=== PATIENT | male | born 1965 | race Caucasian/White ===

== ENCOUNTER 2024-03-22 02:47 | Emergency (ER) | payer SELFPAY ==
[2024-03-22] VITALS (11 sets, daily range): BP systolic 131–177; BP diastolic 77–113; PULSE 78–88; RESP 16–19; TEMP 36.1–37; O2SAT 86–100; BMI 25.1
--- NOTE | 2024-03-22 02:49 | RAD_ITS ---
INDICATION: trauma EXAMINATION/TECHNIQUE: X-RAY - LEFT XR Ankle Min 3 Views COMPARISON: None. FINDINGS: SOFT TISSUES: Moderate soft tissue swelling. BONES/JOINTS: Displaced fracture of the medial malleolus. Displaced fracture of the distal fibula at and proximal to the ankle mortise. Displaced posterior malleolar fracture. Disruption of the ankle mortise. No erosive changes. RAD/Ankle min 3 Views IMPRESSION: Displaced trimalleolar fractures with disruption of the ankle mortise. Electronically Signed: Brandon Guthrie DO at 4:53 EDT ,
--- NOTE | 2024-03-22 03:18 | EDS_ITS ---
HPI History of Present Illness Chief Complaint: Lower Extremity Injury Informant: patient and EMS Narrative Narrative: 59-year-old male presenting to the emergency room with left ankle injury. Patient states that he has been drinking most of the day and about an hour prior to arrival fell in a motel parking lot. States he was unable to get up and injured his left ankle. EMS notes an obvious deformity to the ankle. He notes abrasions to the left knee and right hand. 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 He states he drinks most days. Nursing notes he was incontinent of stool and bladder. He denies any head neck or back injury. He notes the pain to be a 1 out of 10 when EMS is speaking with him. [facility] Medical History Left otitis media Hypertension, uncontrolled Encounter for screening for COVID-19 Home Medications ?Medication ?Instructions ?Recorded ?Last Taken ?Type loratadine 10 mg tablet (Claritin) 10 mg PO DAILY 03/22/24 Unknown History oxycodone-acetaminophen 5 mg-325 1 tab PO Q6H PRN pain 3 days #12 03/22/24 Unknown Rx mg tablet (Percocet) tabs Allergy/AdvReac Type Severity Reaction Status Date / Time No Known Allergies Allergy Verified 03/22/24 03:02 Social History Smoking Status: Current every day smoker tobacco type: smokeless tobacco ROS ROS ED Constitutional Constitutional ED: Denies chills, fever(s) or weight loss Eyes Eyes: Denies change in vision or diplopia ENT ENT ED: Denies ear pain, rhinorrhea or sore throat Cardiovascular Cardiovascular: Denies chest pain, orthopnea, palpitations or racing heartbeat Respiratory/Chest Respiratory/Chest: Denies cough, dyspnea or orthopnea Gastrointestinal Gastrointestinal: Denies abdominal pain, diarrhea, nausea or vomiting Genitourinary Genitourinary ED: Denies dysuria, hematuria or urinary frequency Musculoskeletal Musculoskeletal: Reports other Details: Left ankle injury ; Denies arthralgias, back pain, myalgias or neck pain Integumentary Reports Abrasions; Denies abscess or rash Neurologic Neurologic: Denies headache(s) or weakness Psychiatric Psychiatric: Denies anxiety, depression, suicidal ideation or suicidal thoughts Endocrine Endocrinology: Denies polydipsia, polyphagia or polyuria Allergic/Immunologic Allergic/Immunologic ED: Denies mouth swelling, tongue swelling or urticaria EXAM Physical Exam Const Vital Signs: 03/22/24 02:50 03/22/24 03:49 03/22/24 04:00 Temperature 96.9 F L Temperature Source Temporal Pulse Rate 86 88 83 Pulse Rate [1 (Initial Baseline)] Pulse Rate [3] Respiratory Rate 18 16 Respiratory Rate [1 (Initial Baseline)] Respiratory Rate [3] Blood Pressure 152/96 H 139/92 H Blood Pressure [1 (Initial Baseline)] Blood Pressure [3] Blood Pressure Mean 114 107 Pulse Ox 98 96 Oxygen Delivery Method Room Air Room Air Oxygen Delivery Method [1 (Initial Baseline)] Oxygen Delivery Method [2] Oxygen Delivery Method [3] Oxygen Flow Rate (L/min) Oxygen Flow Rate (L/min) [3] 03/22/24 04:08 03/22/24 04:18 03/22/24 04:23 Temperature Temperature Source Pulse Rate 83 Pulse Rate [1 (Initial Baseline)] 87 Pulse Rate [3] 87 Respiratory Rate 16 Respiratory Rate [1 (Initial Baseline)] 18 Respiratory Rate [3] 19 H Blood Pressure 139/92 H Blood Pressure [1 (Initial Baseline)] 151/94 H Blood Pressure [3] 160/104 H Blood Pressure Mean Pulse Ox 95 Oxygen Delivery Method Room Air Nasal Cannula Oxygen Delivery Method [1 (Initial Baseline)] Room Air Oxygen Delivery Method [2] Room Air Oxygen Delivery Method [3] Nasal Cannula Oxygen Flow Rate (L/min) 2 Oxygen Flow Rate (L/min) [3] 4 03/22/24 04:28 03/22/24 04:33 03/22/24 05:00 Temperature Temperature Source Pulse Rate 80 Pulse Rate [1 (Initial Baseline)] Pulse Rate [3] Respiratory Rate 18 Respiratory Rate [1 (Initial Baseline)] Respiratory Rate [3] Blood Pressure 131/77 H Blood Pressure [1 (Initial Baseline)] Blood Pressure [3] Blood Pressure Mean 95 Pulse Ox 95 Oxygen Delivery Method Room Air Room Air Room Air Oxygen Delivery Method [1 (Initial Baseline)] Oxygen Delivery Method [2] Oxygen Delivery Method [3] Oxygen Flow Rate (L/min) Oxygen Flow Rate (L/min) [3] 03/22/24 06:00 Temperature Temperature Source Pulse Rate 78 Pulse Rate [1 (Initial Baseline)] Pulse Rate [3] Respiratory Rate 18 Respiratory Rate [1 (Initial Baseline)] Respiratory Rate [3] Blood Pressure 143/86 H Blood Pressure [1 (Initial Baseline)] Blood Pressure [3] Blood Pressure Mean 105 Pulse Ox 97 Oxygen Delivery Method Room Air Oxygen Delivery Method [1 (Initial Baseline)] Oxygen Delivery Method [2] Oxygen Delivery Method [3] Oxygen Flow Rate (L/min) Oxygen Flow Rate (L/min) [3] Positive well nourished and well developed General Appearance ED: well developed and NAD HEENT Reports normocephalic, head/scalp atraumatic and moist mucous membranes Eyes PERRL and EOMs intact bilaterally Neck full ROM, no lymphadenopathy, supple and no JVD Neck Narrative: No neck tenderness on palpation Resp normal respiratory effort and clear to auscultation bilaterally Cardio regular rate, regular rhythm and no murmurs GI normal to inspection, nondistended, normoactive bowel sounds and non-tender Palpation: soft Back/Spine no CVA tenderness and normal ROM Cervical Spine: Negative for cervical spine tenderness Thoracic Spine / Upper Back: Negative for thoracic spinal tenderness Lumbar Spine / Lower Back: Negative for lumbar spinal tenderness Extremity Extremity Narrative: There is significant swelling deformity to the left ankle. The foot has a palpable dorsalis pedis pulse. Good capillary refill. He is able to move the toes. There is superficial abrasion to the anterior left knee and the right medial dorsal hand General Extremety ED: Negative for edema General Extremity: Negative for edema Neuro oriented x3 and CN's II-XII intact bilaterally Sensorium / Orientation: alert Motor Exam: strength 5/5 throughout Psych mental status grossly normal Mood & Affect: Negative for depressed or tearful Skin no rashes or lesions noted and no wounds MDM MDM MDM Narrative Medical decision making narrative: Differential diagnosis includes fracture dislocation arterial and venous compromise nerve damage alcohol intoxication My independent interpretation of the plain films of the left ankle is a Tri mall fracture dislocation. There is mortise disruption. I explained to the patient the need to reduce the ankle and splinted it and that it would be significantly painful. He declined pain medication but is willing to have etomidate used for procedural sedation. Patient received 0.15 mg/kg bolus of etomidate. Once adequate sedation was achieved the fracture dislocation was reduced and placed in a posterior and stirrup well-padded Ortho- Glass splint. My independent interpretation of the postreduction films is adequate reduction of the fracture and dislocation. Patient recovered without incident. I spoke with Dr. Shah from foot and ankle. Patient will be given crutches made nonweightbearing given pain medication. A CT scan was obtained for preoperative planning. Patient understands the need to follow-up. I also advised him that he needs help with his alcohol he should get that and I referred him to 180. History & Record Review Discussion w/independent historian: EMS personnel and Patient Radiography Diagnostic Testing: Clinical Impression(s) from Imaging Studies Ankle X-Ray 03/22/24 02:49 IMPRESSION: Displaced trimalleolar fractures with disruption of the ankle mortise. Electronically Signed: Brandon Guthrie DO at 4:53 EDT , Ankle X-Ray 03/22/24 03:46 IMPRESSION: In plaster views of the left ankle demonstrate the previously described medial malleolar and distal fibular fractures with improved alignment of fracture fragments. Unsure whether there is a posterior malleolus fracture. Electronically Signed: Brandon Guthrie DO at 5:20 EDT , Management Discussion w/another healthcare provider: Talent Recruiter (Dr. Shah) Procedures Procedural Sedation 1 (Initial Baseline): Consent Signed: Yes Any Problems With Anesthesia: No You/Your family experience fever (hyperthermia) w/anesthesia: No Sedation medication: Etomidate Dose: 11.2 Route: IV Total Moderate Sedation Units: 5 Maliampati Score: Class II ASA Classification: II Discharge Plan Triage Chief Complaint: Lower Extremity Injury ED Provider: Shubham Weaver Dx/Rx/DC Orders Clinical Impression: Trimalleolar fracture of ankle, closed, Alcohol abuse, Multiple abrasions, Fall Instructions: ED Ankle Fracture, ED Alcohol Abuse Prescriptions: New oxycodone-acetaminophen [Percocet] 5-325 mg tablet 1 tab PO Q6H PRN (Reason: pain) 3 Days Qty: 12 0RF No Action loratadine [Claritin] 10 mg tablet 10 mg PO DAILY Primary Care Provider: Care Physician,No Primary Referrals: Gavin Shah DPM [Med Staff - Active Staff] - As soon as possible Care Physician,No Primary [Primary Care Provider] - [facility] [Non-Staff] - As soon as possible (for alcohol treatment help) Activity Restrictions/Additional Instructions: Do not bear any weight on this ankle. Use crutches. I strongly recommend that you refrain from drinking alcohol. If you need help with drinking please see t he resource given. Print Language: Greek Disposition Disposition: Home, Self Care
--- NOTE | 2024-03-22 03:46 | RAD_ITS ---
INDICATION: post reduction EXAMINATION/TECHNIQUE: X-RAY - LEFT XR Ankle Min 3 Views COMPARISON: X-rays from earlier same day. FINDINGS/ RAD/Ankle min 3 Views IMPRESSION: In plaster views of the left ankle demonstrate the previously described medial malleolar and distal fibular fractures with improved alignment of fracture fragments. Unsure whether there is a posterior malleolus fracture. Electronically Signed: Brandon Guthrie DO at 5:20 EDT ,
[2024-03-22] MEDS: Etomidate 20 MG/10 ML Vial 11.5 MG IV (04:36)
--- NOTE | 2024-03-22 06:10 | CT_ITS ---
INDICATION: Trimalleolar fracture EXAMINATION: CT BONE - CT Ankle W/O Contrast Injection TECHNIQUE: Helically acquired images were obtained of the left ankle with sagittal and coronal reconstructed images. Individualized dose optimization techniques were used for this CT. IV contrast dosage and agent: None. COMPARISON: X-rays from earlier same day. FINDINGS: Diffuse soft tissue swelling and stranding of the ankle, worse laterally. Mildly displaced fractures of the medial malleolus, distal fibula at and proximal to the ankle mortise and the posterior malleolus. The talus is intact. No fracture or dislocation of the partially visualized foot. The tarsal bones are intact. CT/Extremity Lower without Contra IMPRESSION: Trimalleolar fracture. Electronically Signed: Brandon Guthrie DO at 7:08 EDT ,
== END 2024-03-22 06:58 | disposition home or self-care (01) ==
PROVIDERS: Emergency Provider Emergency Medicine; Visit Provider Emergency Medicine
DX: S82.853A Displaced trimalleolar fracture of unspecified lower leg, initial encounter for closed fracture (principal); S90.519A Abrasion, unspecified ankle, initial encounter; Y92.481 Parking lot as the place of occurrence of the external cause; R15.9 Full incontinence of feces; I10 Essential (primary) hypertension; S80.212A Abrasion, left knee, initial encounter; S60.511A Abrasion of right hand, initial encounter; F10.10 Alcohol abuse, uncomplicated; F17.220 Nicotine dependence, chewing tobacco, uncomplicated; W19.XXXA Unspecified fall, initial encounter; Y90.9 Presence of alcohol in blood, level not specified
CPT/HCPCS: 27818; 29515; 73610; 73700; 99285; J7040; A4216

== ENCOUNTER 2024-04-15 10:37 | Observation (INO) | payer MEDICAID, SELFPAY ==
[2024-04-15] VITALS (9 sets, daily range): BP systolic 128–180; BP diastolic 79–104; PULSE 61–106; RESP 15–22; TEMP 36.4–37; O2SAT 98–100; BMI 24.3; BMI 23.1
--- NOTE | 2024-04-15 10:54 | EKG12_ITS ---
Test Reason : PRE OP Blood Pressure : / mmHG Vent. Rate : 088 BPM Atrial Rate : 088 BPM P-R Int : 156 ms QRS Dur : 076 ms QT Int : 350 ms P-R-T Axes : 032 016 041 degrees QTc Int : 423 ms Normal sinus rhythm Normal ECG Confirmed by SEBASTIÁN LANDAVERDE, MORALES ([id number]), social media editor KYRA OLIVEIRA ([id number]) on 04/20/2024 8:39:24 AM Referred By: Confirmed By:JERE LOWERY MD
--- NOTE | 2024-04-15 10:55 | ED.VIS.LOWEX ---
HPI History of Present Illness Chief Complaint: Lower Extremity Injury Narrative Narrative: 59-year-old male past medical history of left ankle fracture, currently being followed as an outpatient by Dr. Shah presents because he is post to have surgery on Saturday. He relays a history that almost a month ago he tripped over a parking curb, and sustained a fracture to his left ankle. He was sent in for medical clearance by the hospitalists for surgery by podiatry. He denies any symptoms except for his splint/cast itching. No fevers or chills, no chest pain or shortness of breath. [facility] Medical History Left otitis media Hypertension, uncontrolled Encounter for screening for COVID-19 Home Medications ?Medication ?Instructions ?Recorded ?Last Taken ?Type loratadine 10 mg tablet (Claritin) 10 mg PO DAILY 03/22/24 Unknown History oxycodone-acetaminophen 5 mg-325 1 tab PO Q6H PRN pain 3 days #12 03/22/24 Unknown Rx mg tablet (Percocet) tabs oxycodone-acetaminophen 5 mg-325 1 tab PO Q6H PRN pain 7 days #28 03/30/24 Unknown Rx mg tablet (Percocet) tabs Allergy/AdvReac Type Severity Reaction Status Date / Time No Known Allergies Allergy Verified 03/22/24 03:02 Social History Smoking Status: Current every day smoker tobacco type: smokeless tobacco ROS ROS ED ROS Narrative Constitutional: No fever, no chills. HEENT: No sore throat. No neck pain. No loss of vision. No rhinorrhea. Cardiovascular: No chest pain. No palpitations. No pedal edema. Respiratory: No cough, no shortness of breath. Abdominal: No abdominal pain. No nausea. No vomiting. Genitourinary: No dysuria. No hematuria. Musculoskeletal: No myalgias. Positive left ankle pain from fracture. Neurologic: No headaches. No dizziness. No lightheadedness. Skin: No rash. No change in color. Psychiatric: No depression. No anxiety. EXAM Physical Exam Narrative Exam Narrative: Afebrile. Vital signs noted. HEENT: Normocephalic. Atraumatic. PERRL, EOMI. Neck soft and supple. No point tenderness or step off. Cardiovascular: Regular rate and rhythm with intermittent tachycardia. No murmurs, rubs, or gallops appreciated. Respiratory: No tachypnea. Lungs clear to auscultation bilaterally. Gastrointestinal: Abdomen soft, nontender, with normoactive bowel sounds. No rebound or guarding. Neurological: Awake. Alert. Nonfocal, nonlateralizing. Skin: No rash. Normal color. No pallor. Musculoskeletal: No pedal edema. Left lower extremity in splint/cast wrapped with Inocente wrap. Const Vital Signs: 04/15/24 10:37 Temperature 97.6 F L Temperature Source Temporal Pulse Rate 106 H Respiratory Rate 22 H Blood Pressure 163/93 H Blood Pressure Mean 116 Pulse Ox 99 Oxygen Delivery Method Room Air MDM MDM MDM Narrative Medical decision making narrative: Reviewed the patient's prior record. Additionally, his independent sales representative Dr. Sahh has called in and would like him admitted to the hospitalist. I will obtain CBC and CMP as well as EKG and chest x-ray for initial medical clearance. EKG was obtained and interpreted by myself independently as normal sinus rhythm at 88 bpm without ectopy or acute ST changes. No STEMI. I reviewed his laboratory work and he has normal white count of 7.3, hemoglobin 12.7 with platelet count normal at 384. CMP is grossly unremarkable with normal LFTs, normal sodium and normal potassium. Creatinine normal at 0.81, no evidence of renal failure. Chest x-ray 1 view interpreted by myself independently shows no evidence of a pneumothorax or pneumonia. At this point in time, I will discuss patient with the hospitalist for admission. They can do other medical clearance laboratories and/or imaging as needed. Disposition is admit in stable condition. History & Record Review Discussion w/independent historian: Patient Additional record(s) reviewed:: Prior ED visit Lab Data Attestation: I reviewed the patient's lab results. Labs: Laboratory Results - last 24 hr 04/15/24 11:00 WBC 7.3 RBC 3.82 L Hgb 12.7 L Hct 39.5 L MCV 103.4 H MCH 33.2 H MCHC 32.2 RDW Std Deviation 47.0 H RDW Coeff of Mikey 12.3 Plt Count 384 MPV 8.2 Immature Gran % (Auto) 0.300 Neut % (Auto) 74.6 H Lymph % (Auto) 15.0 L [place] % (Auto) 7.1 Eos % (Auto) 2.5 Baso % (Auto) 0.5 Absolute Neuts (auto) 5.5 Absolute Lymphs (auto) 1.10 Nucleated RBC % 0 Sodium 136 Potassium 4.3 Chloride 104 Carbon Dioxide 28.0 Anion Gap 4 L BUN 17 Creatinine 0.81 Estim Creat Clear Calc 99.41 Est GFR (MDRD) Af Amer 126 Est GFR (MDRD) Non-Af 104 BUN/Creatinine Ratio 21.0 H Glucose 96 Calcium 9.3 Total Bilirubin 0.50 AST 25 ALT 29 Alkaline Phosphatase 101 Troponin I High Sens 5 Total Protein 7.4 Albumin 3.4 Globulin 4.0 Albumin/Globulin Ratio 0.8 L Radiography Diagnostic Testing: Clinical Impression(s) from Imaging Studies Chest X-Ray 04/15/24 11:11 IMPRESSION: Normal x-ray examination of the chest. Electronically Signed: Blas Mauricio MD at 11:57 EDT , Management Discussion w/another healthcare provider: Hospitalist (Dr. Del Toro) Discharge Plan Dx/Rx/DC Orders Clinical Impression: Closed trimalleolar fracture of ankle Disposition Disposition: Acute Care Hospital [facility]
--- NOTE | 2024-04-15 11:11 | RAD_ITS ---
STUDY: X-RAY CHEST REASON FOR EXAM: Male, 59 years old. Tachycardia TECHNIQUE: Single AP portable view of the chest. COMPARISON: None. FINDINGS: The lungs are clear and expanded. There is no demonstrated pleural abnormality. Normal size heart. Normal mediastinum and lisa. Normal visualized pulmonary arteries. Normal visualized aortic arch and descending thoracic aorta. Normal visualized thoracic spine. Normal visualized ribs, clavicles, and shoulders. There is no demonstrated abnormality of the visualized soft tissue structures of the upper abdomen. RAD/Chest 1 View (Portable) IMPRESSION: Normal x-ray examination of the chest. Electronically Signed: Blas Mauricio MD at 11:57 EDT ,
[2024-04-15 11:12] LABS: Absolute Neutrophil Count 5.5 X10^3/uL (2.0-7.7); Basophil# 0.04 X10^3/uL; Basophil% 0.5 % (0-1); Eosinophil# 0.18 X10^3/uL; Eosinophils% 2.5 % (0-5); Hematocrit 39.5 % (40-54); Hemoglobin 12.7 g/dL (13.0-16.5); Mean Corp Hgb Conc 32.2 g/dL (32-36); Mean Corpuscular Hgb 33.2 pg (27.0-32.0); Mean Corpuscular Volume 103.4 fL (80-94); Mean Platelet Vol. 8.2 fl (6.2-12.0); Monocyte# 0.52 X10^3/uL; Monocyte% 7.1 % (0-10); NRBC Flagged by Analyzer 0 % (0-5); Neutrophil # 5.45 X10^3/uL (2.7-7.7); Neutrophil % 74.6 % (47-70); Platelet Count 384 K/mm3 (150-450); RBC Distribution Width CV 12.3 % (11.6-14.6); Red Blood Count 3.82 M/mm3 (4.6-6.2); White Blood Count 7.3 K/mm3 (4.4-11.0)
[2024-04-15 11:30] LABS: ALB/GLOB Ratio 0.8 RATIO (0.9-2.4); AST(SGOT) 25 U/L (15-37); Alanine Aminotransfer ALT/SGPT 29 U/L (16-61); Albumin, Serum 3.4 g/dL (3.2-5.0); Alkaline Phosphatase 101 U/L (45-117); Anion Gap 4 (5-15); BUN 17 mg/dL (7-18); Calcium,Total 9.3 mg/dL (8.5-10.1); Chloride 104 mmol/L (98-107); Creatinine, Serum 0.81 mg/dL (0.70-1.30); EST Glomerular Filtration Rate 104 mL/min (>60); Est Glom Filt Rate - Afr Amer 126 mL/min (>60); Estimated Creatinine Clearance 99.41 ml/min; Glucose 96 mg/dL (74-106); Potassium 4.3 mmol/L (3.5-5.1); Protein, Total 7.4 g/dL (6.4-8.2); Sodium Level 136 mmol/L (136-145); Troponin-I HS 5 pg/mL (3.0-78.0)
--- NOTE | 2024-04-15 11:58 | NURSING ---
DR BAILEY FOR DR THORNE
--- NOTE | 2024-04-15 11:59 | HP.PCM.HOS_ITS ---
HPI - General General Date of Admission: 04/15/24 Date of Service: 04/15/24 Chief Complaint: Recent left ankle fracture, preoperative evaluation HPI Narrative CHERRIE BURNS, is a 59 M who presented to [facility] ED on 04/15/2024 for preoperative evaluation prior to planned surgery on Saturday with podiatry for recent left ankle fracture. Patient suffered ankle fracture on 03/22, was seen in our ED for this. Per that ED note, patient apparently was out drinking that day and had a fall off of the curb in a motel parking lot with subsequent left ankle pain. EMS was called and noted an obvious ankle deformity and brought him to the ED. 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 At that time, ED noted that he apparently said he was drinking most days. In the ED, was found to have a closed trimalleolar left ankle fracture as well as other small abrasions throughout the body. He was discharged from the ED and followed up with podiatry in the office. He came to the ED today at the request of Dr. Shah for preoperative evaluation. He apparently has some insurance issues and it was challenging to get preoperative clearance done in the office. I saw patient at bedside in the ED. He was mildly anxious appearing but otherwise sitting up comfortably in bed, in no acute distress. Stated to me today that he only drinks about once per week and drinks only beer. Denies any hard liquor use. Denies any history of alcohol withdrawal. He also uses chewing tobacco on a regular basis. Denies any other drug use. Takes no regular medications at home. Vitals in the ED were notable for hypertension to the 170s over 90s. Patient denies history of hypertension. He was initially prescribed a short course of Percocet on discharge from the ED on 03/22 but after 5 to 7 days of that he had good improvement in pain and has only been taking ibuprofen as needed for pain since then. He otherwise denies any concerns at this time. [facility] Medical History Left otitis media Hypertension, uncontrolled Encounter for screening for COVID-19 Home Medications ?Medication ?Instructions ?Recorded ?Last Taken ?Type oxycodone-acetaminophen 5 mg-325 1 tab PO Q6H PRN pain 7 days #28 03/30/24 Unknown Rx mg tablet (Percocet) tabs acetaminophen 500 mg tablet 1,000 mg PO Q6H PRN pain 04/15/24 04/15/24 History ibuprofen 800 mg tablet 800 mg PO TID 04/15/24 04/15/24 History multivitamin (Daily Multi-Vitamin 0.5 tab PO DAILY 04/15/24 04/15/24 History tablet) Allergy/AdvReac Type Severity Reaction Status Date / Time No Known Allergies Allergy Verified 03/22/24 03:02 Social History Smoking Status: Current every day smoker tobacco type: smokeless tobacco ROS Constitutional Constitutional: Denies chills, fatigue, fever(s) or weakness Eyes Eyes: Denies change in vision Cardiovascular Cardiovascular: Denies chest pain Respiratory/Chest Respiratory/Chest: Denies shortness of breath at rest or shortness of breath with exertion Gastrointestinal Gastrointestinal: Denies abdominal pain Musculoskeletal Musculoskeletal: Reports joint pain; Denies arthralgias or myalgias Neurologic Neurologic: Denies dizziness, focal weakness or headache(s) Vital Signs Vital Signs Vital Signs: 04/15/24 10:37 Temperature 97.6 F L Temperature Source Temporal Pulse Rate 106 H Respiratory Rate 22 H Blood Pressure 163/93 H Blood Pressure Mean 116 Pulse Ox 99 Oxygen Delivery Method Room Air Weight Weight: 74.843 kg Body Mass Index (BMI) 24.3 Physical Exam Const alert, oriented x3, no apparent distress and average body habitus Constitutional Narrative: Middle-age male, mildly anxious appearing but otherwise sitting up comfortably in bed, conversing normally, no acute distress. General Appearance: cooperative and comfortable HEENT normocephalic, head/scalp atraumatic, hearing grossly normal bilaterally, nasal mucous membranes and turbinates normal and moist oral mucous membranes Eyes PERRL, EOMs intact bilaterally and conjunctivae normal Neck full ROM Chest inspection of chest normal Resp normal respiratory effort, normal air movement, no use of accessory muscles and clear to auscultation bilaterally Cardio regular rate, regular rhythm, no murmurs and peripheral pulses 2+ throughout GI normal to inspection, nondistended, normoactive bowel sounds, soft to palpation, non-tender and non-distended Back/Spine normal ROM Extremity Extremity Narrative: Left ankle with large wrap in place, stable. Skin no rashes or lesions noted Neuro Speech: speech normal Psych mental status grossly normal Mood & Affect: anxious Results Lab / Micro Data 04/15/24 11:00 04/15/24 11:00 Labs: Laboratory Results - last 24 hr 04/15/24 11:00: WBC 7.3, RBC 3.82 L, Hgb 12.7 L, Hct 39.5 L, MCV 103.4 H, MCH 33.2 H, MCHC 32.2, RDW Std Deviation 47.0 H, RDW Coeff of Mikey 12.3, Plt Count 384, MPV 8.2, Immature Gran % (Auto) 0.300, Neut % (Auto) 74.6 H, Lymph % (Auto) 15.0 L, [place] % (Auto) 7.1, Eos % (Auto) 2.5, Baso % (Auto) 0.5, Absolute Neuts (auto) 5.5, Absolute Lymphs (auto) 1.10, Nucleated RBC % 0, Sodium 136, Potassium 4.3, Chloride 104, Carbon Dioxide 28.0, Anion Gap 4 L, BUN 17, Creatinine 0.81, Estim Creat Clear Calc 99.41, Est GFR (MDRD) Af Amer 126, Est GFR (MDRD) Non-Af 104, BUN/Creatinine Ratio 21.0 H, Glucose 96, Calcium 9.3, Total Bilirubin 0.50, AST 25, ALT 29, Alkaline Phosphatase 101, Troponin I High Sens 5, Total Protein 7.4, Albumin 3.4, Globulin 4.0, Albumin/Globulin Ratio 0.8 L Imaging Radiology Impression Chest X-Ray 04/15/24 11:11 IMPRESSION: Normal x-ray examination of the chest. Electronically Signed: Blas Mauricio MD at 11:57 EDT , Assessment & Plan Assessment/Plan (1) Closed trimalleolar fracture of left ankle: PLAN: Plan Patient is a 59-year-old male who presented [facility] ED on 04/15/2024 for preoperative evaluation prior to planned procedure for recent left ankle fracture. 1. Recent left ankle fracture ? Podiatry consulted. Patient suffered a closed trimalleolar left ankle fracture on 03/22. Planning for surgical fixation on 04/17. Preoperative evaluation as noted below. Treat with scheduled Tylenol and oxycodone 5 mg every 6 hours as needed for pain control. Lovenox for DVT prophylaxis. 2. Preoperative evaluation ? NSQIP score: Patient is at average risk of serious, occasion, below average risk of any complication and below average risk of discharge to rehab facility given risk factors of mild systemic disease and tobacco use. ? Labs/imaging: Hemoglobin 12.7 and creatinine 0.81 on admit, baseline unknown. No other significant lab abnormalities. Chest x-ray normal on admit. No need for further labs or imaging prior to procedure. Follow-up CBC and BMP postoperatively. ? Cardiac eval: EKG on admit showed normal sinus rhythm, no ST changes. Did have elevated BP readings concerning for untreated hypertension as noted below. Will obtain echo for further evaluation. ? Medications: Not on any home medications. ? Prior procedural complications: None. ? Recommendation: Pending results of echocardiogram, will be medically optimized for procedure. 3. Concern for alcohol abuse ? Patient reports only drinking beer a few days per week on this admission. However, fall was secondary to suspected alcohol intoxication and at that time he apparently reported drinking on an almost daily basis. Alcohol level 0 on admit. Placed on CIWA protocol with as needed medications per alcohol withdrawal order set, will monitor closely. 4. Tobacco use ? Reports daily use of chewing tobacco. Denied need for nicotine replacement therapy on admission. 5. Elevated BP readings ? BP 170s over 90s on day of admission. No prior diagnosis of hypertension. Will treat with IV hydralazine as needed for now but if BPs remain elevated, low threshold to start scheduled oral medication. 6. Mild macrocytic anemia ? Hemoglobin 12.7, MCV 103 on admit. Baseline unknown. Vitamin B12, folate, and iron studies ordered for further evaluation. Follow-up a.m. CBC. DVT prophylaxis: Lovenox CODE STATUS: Full code, verified Expected disposition: TBD Total clinical time spent by myself addressing the patient's medical issues, reviewing all the data, and collaborating with patient's care team: 55 minutes. Charges/Coding Visit Charges Inpatient E&M: 78303 Init Hosp L2
--- NOTE | 2024-04-15 12:25 | ED.RN ---
PT REFUSING TO GIVE URINE SAMPLE UNTIL HE GETS TO THE FLOOR
--- NOTE | 2024-04-15 12:33 | ED.RN ---
PT DID PROVIDE URINE SAMPLE BUT STATES HE DOES NOT NEED ATIVAN
[2024-04-15 12:46] LABS: Alcohol, Blood (Medical)-Serum < 3.0 mg/dL
[2024-04-15 12:51] LABS: Amphetamine Urine VISTA NEGATIVE (<1000 ng/mL); Barbiturate Urine VISTA NEGATIVE (< 200 ng/mL); Benzodiazepine Urine VISTA NEGATIVE (< 200 ng/mL); Cocaine Urine VISTA NEGATIVE (< 300 ng/mL); Ecstacy Urine VISTA NEGATIVE (< 500 ng/mL); Methadone Urine VISTA NEGATIVE (< 300 ng/mL); PCP Urine VISTA NEGATIVE (< 25 ng/mL); THC Urine VISTA NEGATIVE (< 50 ng/mL); Vista UDS pH Range 6
--- NOTE | 2024-04-15 13:02 | NURSING ---
MED SURG MOSTELLER TRIMALLEOLAR FRACTURE OF LEFT ANKLE
[2024-04-15] MEDS: Acetaminophen 500 MG Tablet 1000 MG PO ×2 (13:52→21:33)
--- NOTE | 2024-04-15 17:14 | PCM.CONS.GEN ---
Assessment & Plan Assessment/Plan (1) Closed trimalleolar fracture of left ankle: QUALIFIERS: Encounter type: initial encounter Qualified Code(s): S82.852A - Displaced trimalleolar fracture of left lower leg, initial encounter for closed fracture PLAN: Patient was examined and evaluated. All findings were discussed with the patient. All questions were answered to the patient satisfaction. Plan for open reduction internal fixation to the left lower extremity trimalleolar ankle fracture this Saturday. Patient is currently being optimized by internal medicine for surgery. Patient will continue to leave the AO splint to left lower extremity clean dry and intact. There will be no plan for percutaneous screw fixation to the fracture of the right fibula. Medicine: On board, medical management. Surgical clearance pending Social work: Consult pending Due to the patient's current living situation. 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 Will plan for open reduction internal fixation to the left lower extremity trimalleolar ankle fracture, with syndesmotic repair, stress views, and application of posterior splint. Plan for surgery will be 04/17/2024. Patient to be n.p.o. midnight . Podiatry will continue to follow while the patient is in house. Please reach out to Dr. Shah with any questions or concerns. (2) Pain in left ankle: QUALIFIERS: Chronicity: acute Qualified Code(s): M25.572 - Pain in left ankle and joints of left foot (3) Right fibular fracture: QUALIFIERS: Encounter type: initial encounter Fibula location: distal Fracture morphology: other fracture Fracture type: closed Qualified Code(s): S82.831A - Other fracture of upper and lower end of right fibula, initial encounter for closed fracture (4) Pain in right ankle: QUALIFIERS: Chronicity: acute Qualified Code(s): M25.571 - Pain in right ankle and joints of right foot HPI Consult Data Date of Consult: 04/15/24 HPI Narrative Reason for Consultation: Left lower extremity trimalleolar ankle fracture HPI Narrative: CHERRIE BURNS, is a 59 M who presented [facility] for admission for trimalleolar ankle fracture secondary to surgical fixation and lack of medical clearance. The patient has been having pain to the left lower extremity. His injury resulted from tripping over a parking curb after his birthday when he consumed a few alcoholic drinks. He was seen at [facility] and evaluated for a left ankle fracture. He also fractured the fibula to the right lower extremity which is nonsurgical. He admits that his pain currently is a 2 out of 10 on the pain scale. But at night with repositioning his pain can be as high as 8 out of 10 on the pain scale. He has left the posterior splint clean dry and intact. He denies any pain to the right lower extremity at this time. He denies any new onset of trauma except stated above. He denies constitutional symptoms. No other pedal complaints at this time. [facility] Medical History Left otitis media Hypertension, uncontrolled Encounter for screening for COVID-19 Home Medications ?Medication ?Instructions ?Recorded ?Last Taken ?Type oxycodone-acetaminophen 5 mg-325 1 tab PO Q6H PRN pain 7 days #28 03/30/24 Unknown Rx mg tablet (Percocet) tabs acetaminophen 500 mg tablet 1,000 mg PO Q6H PRN pain 04/15/24 04/15/24 History ibuprofen 800 mg tablet 800 mg PO TID 04/15/24 04/15/24 History multivitamin (Daily Multi-Vitamin 0.5 tab PO DAILY 04/15/24 04/15/24 History tablet) Allergy/AdvReac Type Severity Reaction Status Date / Time No Known Allergies Allergy Verified 03/22/24 03:02 Social History Smoking Status: Current every day smoker tobacco type: smokeless tobacco Physical Exam Narrative Vascular: DP and PT pulses are deferred secondary to posterior splint application to left lower extremity. Capillary refill time is brisk. Nonpitting edema appreciated bilateral lower extremity. Active and passive range of motion of lesser digits is pain-free. Skin temperature gradient from proximal posterior splint as well as distally are within normal limits. Skin temp gradient is warm to warm from proximal ankle to distal digit to the right lower extremity. No focal increase is appreciated. Neurological: Light touch intact. Patient response to painful stimuli. Dermatological: Nonpitting edema appreciated to proximal and distal to left lower extremity dressing. Nonpitting edema appreciated to the right lower extremity with evidence of ecchymosis to the level of the ankle of the right lower extremity. Webspaces 1 through 4 bilaterally are clean dry and intact. No open lesions or abrasions to right lower extremity. Musculoskeletal: Muscle strength is 5 out of 5 in all quadrants right lower extremity with some pain. No pain on palpation to the distal fibula of the right lower extremity. Muscle strength deferred to the left lower extremity secondary to a splint. Mild pain on palpation on the exterior palpation of the medial and lateral malleolus to left lower extremity. No pain with calf pressure bilateral. Lab / Micro Data 04/15/24 11:00 04/15/24 11:00 Labs: Laboratory Results - last 24 hr 04/15/24 11:00: WBC 7.3, RBC 3.82 L, Hgb 12.7 L, Hct 39.5 L, MCV 103.4 H, MCH 33.2 H, MCHC 32.2, RDW Std Deviation 47.0 H, RDW Coeff of Mikey 12.3, Plt Count 384, MPV 8.2, Immature Gran % (Auto) 0.300, Neut % (Auto) 74.6 H, Lymph % (Auto) 15.0 L, [place] % (Auto) 7.1, Eos % (Auto) 2.5, Baso % (Auto) 0.5, Absolute Neuts (auto) 5.5, Absolute Lymphs (auto) 1.10, Nucleated RBC % 0, Sodium 136, Potassium 4.3, Chloride 104, Carbon Dioxide 28.0, Anion Gap 4 L, BUN 17, Creatinine 0.81, Estim Creat Clear Calc 99.41, Est GFR (MDRD) Af Amer 126, Est GFR (MDRD) Non-Af 104, BUN/Creatinine Ratio 21.0 H, Glucose 96, Calcium 9.3, Total Bilirubin 0.50, AST 25, ALT 29, Alkaline Phosphatase 101, Troponin I High Sens 5, Total Protein 7.4, Albumin 3.4, Globulin 4.0, Albumin/Globulin Ratio 0.8 L 04/15/24 12:21: Ethyl Alcohol < 3.0 04/15/24 12:32: Urine Opiates Screen NEGATIVE, Urine Methadone Screen NEGATIVE, Ur Barbiturates Screen NEGATIVE, Ur Phencyclidine Scrn NEGATIVE, Ur Amphetamines Screen NEGATIVE, MDMA (Ecstasy) Screen NEGATIVE, U Benzodiazepines Scrn NEGATIVE, Urine Cocaine Screen NEGATIVE, U Cannabinoids Screen NEGATIVE, Ur Drug Screen Comment Imaging Radiology Impression Chest X-Ray 04/15/24 11:11 IMPRESSION: Normal x-ray examination of the chest. Electronically Signed: Blas Mauricio MD at 11:57 EDT ,
--- NOTE | 2024-04-15 17:17 | ECHOD_ITS ---
Reason For Study: PRE OPERATIVE Procedure This was a 2D Doppler, Color Flow transthoracic echocardiogram. Exam performed portable in patient room. Left Ventricle Normal LV size. The estimated ejection fraction is 65-70 %. No evidence for diastolic dysfunction. No regional wall motion abnormalities noted. Right Ventricle Normal RV size. Normal systolic function. Atria The left and right atria are normal. No doppler evidence for ASD. Mitral Valve There is no mitral valve stenosis. Trivial mitral valve insufficiency. Tricuspid Valve There is no tricuspid stenosis. Unable to estimate RV systolic pressure due to inadequate jet, pulmonary artery pressure probably normal. Aortic Valve Trisinus/trileaflet aortic valve. There is no aortic stenosis. No aortic valve insufficiency. Pulmonic Valve There is no pulmonic valvular stenosis. No pulmonic valve insufficiency. Great Vessels Normal aortic root. Pericardium/Pleural No pericardial effusion. MMode/2D Measurements & Calculations LVIDd: 4.3 cm IVSd: 1.3 cm Ao root diam: 3.2 cm LVIDs: 2.6 cm LVPWd: 1.3 cm RVDd: 3.0 cm FS: 38.6 % LAV(MOD-bp): 36.8 ml RVOT diam: 2.1 cm LVAd ap4: 26.1 cm2 LAV(MOD-bp) Indexed: 19.8 ml/m2 LVLd ap4: 8.2 cm LAV(MOD-sp2): 37.0 ml EDV(MOD-sp4): 68.0 ml LAV(MOD-sp4): 34.7 ml EDV(sp4-el): 70.2 ml LVAs ap4: 11.1 cm2 LVLs ap4: 6.6 cm ESV(MOD-sp4): 18.0 ml ESV(sp4-el): 15.9 ml EF(MOD-sp4): 73.5 % EF(sp4-el): 77.4 % SV(MOD-sp4): 50.0 ml SV(sp4-el): 54.4 ml LA A4 area: 15.6 cm2 LA dimension(2D): 3.9 cm RA A4 area: 11.5 cm2 TAPSE: 1.7 cm Time Measurements MV dec time: 0.20 sec Doppler Measurements & Calculations MV E max ti: 87.2 cm/sec Lat Peak E' Ti: 9.2 cm/sec Med Peak E' Ti: 8.9 cm/sec MV A max ti: 94.2 cm/sec E/E' lat: 9.5 E/E' med: 9.8 MV E/A: 0.93 MV V2 max: 100.1 cm/sec Ao V2 max: 169.9 cm/sec MV max P.0 mmHg MV dec slope: 445.7 cm/sec2 Ao max P.6 mmHg MV V2 mean: 69.5 cm/sec Ao V2 mean: 117.3 cm/sec MV mean P.1 mmHg Ao mean P.3 mmHg MV V2 VTI: 26.5 cm Ao V2 VTI: 33.7 cm AV (velocity ratio): 0.74 LV V1 max: 132.9 cm/sec PA V2 max: 202.1 cm/sec SV(RVOT): 76.0 ml LV V1 max P.1 mmHg PA max PG (full): 12.2 mmHg LV V1 mean P.1 mmHg PA V2 mean: 135.0 cm/sec LV V1 mean: 96.0 cm/sec PA mean PG (full): 6.0 mmHg LV V1 VTI: 24.8 cm ECHO/Echo Complete Interpretation Summary The estimated ejection fraction is 65-70 %. No evidence for diastolic dysfunction. Trivial mitral valve insufficiency. Ordering Physician: José Del Toro Referring Physician: NO PCP Performed By: Jaylene Rodriguez RCS
[2024-04-15] MEDS: hydrALAZINE 20 MG/ML Vial 10 MG IV (18:28)
[2024-04-15] MEDS: 0.9% Saline Lock 10 ML Syringe IV (18:28)
[2024-04-15 20:35] LABS: Ferritin 182 ng/mL (26-388); Iron 104 ug/dL (65-175); Iron Binding Capacity,Total 312 ug/dL (250-450); PERCENT IRON SATURATION 33.3 % (15.0-55.0)
[2024-04-15 20:46] LABS: Vitamin B12 247 pg/mL (211-911)
[2024-04-15] MEDS: oxyCODONE 5 MG Tablet PO (21:34)
[2024-04-16] VITALS (7 sets, daily range): BP systolic 149–168; BP diastolic 82–97; PULSE 69–86; RESP 15–18; TEMP 36.3–36.8; O2SAT 97–100; BMI 23.1
[2024-04-16] MEDS: oxyCODONE 5 MG Tablet PO ×3 (03:43→20:49)
[2024-04-16] MEDS: Acetaminophen 500 MG Tablet 1000 MG PO ×3 (06:15→20:49)
[2024-04-16 07:25] LABS: Hematocrit 40.4 % (40-54); Hemoglobin 12.9 g/dL (13.0-16.5); Mean Corp Hgb Conc 31.9 g/dL (32-36); Mean Corpuscular Hgb 32.7 pg (27.0-32.0); Mean Corpuscular Volume 102.5 fL (80-94); Mean Platelet Vol. 8.5 fl (6.2-12.0); Platelet Count 357 K/mm3 (150-450); RBC Distribution Width CV 12.3 % (11.6-14.6); RBC Distribution Width SD 46.6 fl (35.1-43.9); Red Blood Count 3.94 M/mm3 (4.6-6.2)
[2024-04-16] MEDS: Enoxaparin 40 MG/0.4 ML Syringe SC (07:43)
[2024-04-16] MEDS: Folic Acid 1 MG Tablet PO (07:43)
[2024-04-16] MEDS: Thiamine Hydrochloride 100 MG Tablet PO (07:43)
[2024-04-16 07:58] LABS: Anion Gap 5 (5-15); BUN 15 mg/dL (7-18); BUN/Creat Ratio 19.9 RATIO (10-20); Calcium,Total 9.4 mg/dL (8.5-10.1); Chloride 107 mmol/L (98-107); Creatinine, Serum 0.76 mg/dL (0.70-1.30); EST Glomerular Filtration Rate 113 mL/min (>60); Est Glom Filt Rate - Afr Amer 137 mL/min (>60); Estimated Creatinine Clearance 105.95 ml/min; Glucose 85 mg/dL (74-106); Potassium 3.9 mmol/L (3.5-5.1); Sodium Level 139 mmol/L (136-145)
--- NOTE | 2024-04-16 09:30 | PCM.PN.HOSP ---
Subjective Subjective Doing well, no issues overnight. Nonweightbearing on left lower extremity Objective Data Objective Data Vital Signs: Vital Signs Temp Pulse Resp BP Pulse Ox O2 Del Method 97.4 F L 73 18 154/97 H 100 Room Air 04/16/24 07:35 04/16/24 07:35 04/16/24 07:35 04/16/24 07:35 04/16/24 07:35 04/16/24 07:35 Oxygen Delivery Method Room Air Weight: 157 lb Body Mass Index (BMI) 23.1 Lab / Micro Data 04/16/24 07:02 04/16/24 07:02 Labs: Laboratory Results - last 24 hr 04/15/24 11:00: WBC 7.3, RBC 3.82 L, Hgb 12.7 L, Hct 39.5 L, MCV 103.4 H, MCH 33.2 H, MCHC 32.2, RDW Std Deviation 47.0 H, RDW Coeff of Mikey 12.3, Plt Count 384, MPV 8.2, Immature Gran % (Auto) 0.300, Neut % (Auto) 74.6 H, Lymph % (Auto) 15.0 L, [place] % (Auto) 7.1, Eos % (Auto) 2.5, Baso % (Auto) 0.5, Absolute Neuts (auto) 5.5, Absolute Lymphs (auto) 1.10, Nucleated RBC % 0, Sodium 136, Potassium 4.3, Chloride 104, Carbon Dioxide 28.0, Anion Gap 4 L, BUN 17, Creatinine 0.81, Estim Creat Clear Calc 99.41, Est GFR (MDRD) Af Amer 126, Est GFR (MDRD) Non-Af 104, BUN/Creatinine Ratio 21.0 H, Glucose 96, Calcium 9.3, Iron 104, TIBC 312, Iron Saturation 33.3, Ferritin 182, Total Bilirubin 0.50, AST 25, ALT 29, Alkaline Phosphatase 101, Troponin I High Sens 5, Total Protein 7.4, Albumin 3.4, Globulin 4.0, Albumin/Globulin Ratio 0.8 L, Folate 15.60 04/15/24 12:21: Vitamin B12 247, Ethyl Alcohol < 3.0 04/15/24 12:32: Urine Opiates Screen NEGATIVE, Urine Methadone Screen NEGATIVE, Ur Barbiturates Screen NEGATIVE, Ur Phencyclidine Scrn NEGATIVE, Ur Amphetamines Screen NEGATIVE, MDMA (Ecstasy) Screen NEGATIVE, U Benzodiazepines Scrn NEGATIVE, Urine Cocaine Screen NEGATIVE, U Cannabinoids Screen NEGATIVE, Ur Drug Screen Comment 04/16/24 07:02: WBC 6.0, RBC 3.94 L, Hgb 12.9 L, Hct 40.4, MCV 102.5 H, MCH 32.7 H, MCHC 31.9 L, RDW Std Deviation 46.6 H, RDW Coeff of Mikey 12.3, Plt Count 357, MPV 8.5, Sodium 139, Potassium 3.9, Chloride 107, Carbon Dioxide 27.0, Anion Gap 5, BUN 15, Creatinine 0.76, Estim Creat Clear Calc 105.95, Est GFR (MDRD) Af Amer 137, Est GFR (MDRD) Non-Af 113, BUN/Creatinine Ratio 19.9, Glucose 85, Calcium 9.4 Radiography Diagnostic Testing: Radiology Impression Chest X-Ray 04/15/24 11:11 IMPRESSION: Normal x-ray examination of the chest. Electronically Signed: Blas Mauricio MD at 11:57 EDT Reading Location ID and State: [address] [place] [address] , Service support , Physical Exam Narrative General: Alert, Oriented x3, Cooperative, No apparent distress HEENT: Atraumatic, PERRLA, EOMI, Normocephalic Oral: Moist Mucosa Neck: Supple, No JVD Lungs: Diminished, Normal air movement, No rhonchi, No wheeze, No rales Cardiovascular: Regular rate, Regular Rhythm, Normal S1, Normal S2, No murmurs Abdomen: Soft, Non Tender, Non-Distended, No Hepato-splenomegaly Extremities: No edema, Capillary Refill Less than 3 Seconds Skin: No rashes, No breakdown Musculoskeletal: Left lower extremity wrapped Neurological: No focal neurological deficits, Motor Exam 5/5 strength throughout, Sensory exam intact to light touch and pain Psych/Mental Status: Normal Affect, Appropriate Assessment & Plan Assessment/Plan (1) Closed trimalleolar fracture of left ankle: QUALIFIERS: Encounter type: initial encounter Qualified Code(s): S82.852A - Displaced trimalleolar fracture of left lower leg, initial encounter for closed fracture PLAN: Plan 1. Recent left ankle fracture ? Podiatry consulted. Patient suffered a closed trimalleolar left ankle fracture on 03/22. Planning for surgical fixation on 04/17. Preoperative evaluation as noted below. Treat with scheduled Tylenol and oxycodone 5 mg every 6 hours as needed for pain control. Lovenox for DVT prophylaxis. 04/16/2024: Echo is pending for preoperative evaluation. Plan for operative repair tomorrow afternoon 2. Preoperative evaluation ? NSQIP score: Patient is at average risk of serious, occasion, below average risk of any complication and below average risk of discharge to rehab facility given risk factors of mild systemic disease and tobacco use. ? Labs/imaging: Hemoglobin 12.7 and creatinine 0.81 on admit, baseline unknown. No other significant lab abnormalities. Chest x-ray normal on admit. No need for further labs or imaging prior to procedure. Follow-up CBC and BMP postoperatively. ? Cardiac eval: EKG on admit showed normal sinus rhythm, no ST changes. Did have elevated BP readings concerning for untreated hypertension as noted below. Will obtain echo for further evaluation. ? Medications: Not on any home medications. ? Prior procedural complications: None. ? Recommendation: Pending results of echocardiogram, will be medically optimized for procedure. 04/16/2024: Likely regardless of echo findings, medically stable for surgery 3. Concern for alcohol abuse ? Patient reports only drinking beer a few days per week on this admission. However, fall was secondary to suspected alcohol intoxication and at that time he apparently reported drinking on an almost daily basis. Alcohol level 0 on admit. Placed on CIWA protocol with as needed medications per alcohol withdrawal order set, will monitor closely. 4. Tobacco use ? Reports daily use of chewing tobacco. Denied need for nicotine replacement therapy on admission. 5. Elevated BP readings ? BP 170s over 90s on day of admission. No prior diagnosis of hypertension. Will treat with IV hydralazine as needed for now but if BPs remain elevated, low threshold to start scheduled oral medication. 04/16/2024: Will wait until after surgery to adjust medications for blood pressure if he continues to have elevated readingsAs it appears to be higher than his baseline from a month ago and could be attributed to pain and discomfort 6. Mild macrocytic anemia ? Hemoglobin 12.7, MCV 103 on admit. Baseline unknown. Vitamin B12, folate, and iron studies ordered for further evaluation. Follow-up a.m. CBC. DVT: Lovenox Charges/Coding Visit Charges Inpatient E&M: 28324 Subs Hosp L2
--- NOTE | 2024-04-16 09:40 | PN_ITS ---
Subjective Subjective Mr. Schumacher is a 59-year-old male seen at bedside today for evaluation prior to surgery tomorrow with open reduction internal fixation to left lower extremity. All risk and benefits were discussed the patient great detail. He states that he is ready to move forward with left ankle surgery repair. He has met with physical therapy and social work and is beginning his discharge planning. No acute events overnight. Denies any pain to left lower extremity. Denies constitutional symptoms. No other pedal complaints at this time. Objective Data Objective Data Vital Signs: Vital Signs Temp Pulse Resp BP Pulse Ox O2 Del Method 97.4 F L 73 18 154/97 H 100 Room Air 04/16/24 07:35 04/16/24 07:35 04/16/24 07:35 04/16/24 07:35 04/16/24 07:35 04/16/24 07:35 Oxygen Delivery Method Room Air Weight: 71.214 kg Body Mass Index (BMI) 23.1 Lab / Micro Data 04/16/24 07:02 04/16/24 07:02 Labs: Laboratory Results - last 24 hr 04/15/24 11:00: WBC 7.3, RBC 3.82 L, Hgb 12.7 L, Hct 39.5 L, MCV 103.4 H, MCH 33.2 H, MCHC 32.2, RDW Std Deviation 47.0 H, RDW Coeff of Mikey 12.3, Plt Count 384, MPV 8.2, Immature Gran % (Auto) 0.300, Neut % (Auto) 74.6 H, Lymph % (Auto) 15.0 L, [place] % (Auto) 7.1, Eos % (Auto) 2.5, Baso % (Auto) 0.5, Absolute Neuts (auto) 5.5, Absolute Lymphs (auto) 1.10, Nucleated RBC % 0, Sodium 136, Potassium 4.3, Chloride 104, Carbon Dioxide 28.0, Anion Gap 4 L, BUN 17, Creatinine 0.81, Estim Creat Clear Calc 99.41, Est GFR (MDRD) Af Amer 126, Est GFR (MDRD) Non-Af 104, BUN/Creatinine Ratio 21.0 H, Glucose 96, Calcium 9.3, Iron 104, TIBC 312, Iron Saturation 33.3, Ferritin 182, Total Bilirubin 0.50, AST 25, ALT 29, Alkaline Phosphatase 101, Troponin I High Sens 5, Total Protein 7.4, Albumin 3.4, Globulin 4.0, Albumin/Globulin Ratio 0.8 L, Folate 15.60 04/15/24 12:21: Vitamin B12 247, Ethyl Alcohol < 3.0 04/15/24 12:32: Urine Opiates Screen NEGATIVE, Urine Methadone Screen NEGATIVE, Ur Barbiturates Screen NEGATIVE, Ur Phencyclidine Scrn NEGATIVE, Ur Amphetamines Screen NEGATIVE, MDMA (Ecstasy) Screen NEGATIVE, U Benzodiazepines Scrn NEGATIVE, Urine Cocaine Screen NEGATIVE, U Cannabinoids Screen NEGATIVE, Ur Drug Screen Comment 04/16/24 07:02: WBC 6.0, RBC 3.94 L, Hgb 12.9 L, Hct 40.4, MCV 102.5 H, MCH 32.7 H, MCHC 31.9 L, RDW Std Deviation 46.6 H, RDW Coeff of Mikey 12.3, Plt Count 357, MPV 8.5, Sodium 139, Potassium 3.9, Chloride 107, Carbon Dioxide 27.0, Anion Gap 5, BUN 15, Creatinine 0.76, Estim Creat Clear Calc 105.95, Est GFR (MDRD) Af Amer 137, Est GFR (MDRD) Non-Af 113, BUN/Creatinine Ratio 19.9, Glucose 85, Calcium 9.4 Radiography Diagnostic Testing: Radiology Impression Chest X-Ray 04/15/24 11:11 IMPRESSION: Normal x-ray examination of the chest. Electronically Signed: Blas Mauricio MD at 11:57 EDT Reading Location ID and State: [facility] / [place] , Service support , Physical Exam Narrative Vascular: DP and PT pulses are deferred secondary to posterior splint application to left lower extremity. Capillary refill time is brisk. Nonpitting edema appreciated bilateral lower extremity. Active and passive range of motion of lesser digits is pain-free. Skin temperature gradient from proximal posterior splint as well as distally are within normal limits. Skin temp gradient is warm to warm from proximal ankle to distal digit to the right lower extremity. No focal increase is appreciated. Neurological: Light touch intact. Patient response to painful stimuli. Dermatological: Nonpitting edema appreciated to proximal and distal to left lower extremity dressing. Nonpitting edema appreciated to the right lower extremity with evidence of ecchymosis to the level of the ankle of the right lower extremity. Webspaces 1 through 4 bilaterally are clean dry and intact. No open lesions or abrasions to right lower extremity. Musculoskeletal: Muscle strength is 5 out of 5 in all quadrants right lower extremity with some pain. No pain on palpation to the distal fibula of the right lower extremity. Muscle strength deferred to the left lower extremity secondary to a splint. Mild pain on palpation on the exterior palpation of the medial and lateral malleolus to left lower extremity. No pain with calf pressure bilateral. Assessment & Plan Assessment/Plan (1) Closed trimalleolar fracture of left ankle: QUALIFIERS: Encounter type: initial encounter Qualified Code(s): S82.852A - Displaced trimalleolar fracture of left lower leg, initial encounter for closed fracture PLAN: Patient was examined and evaluated. All findings were discussed with the patient. All questions were answered to the patient satisfaction. Will plan for open reduction internal fixation to the left lower extremity trimalleolar ankle fracture, with syndesmotic repair, stress views, and application of posterior splint. Plan for surgery will be 04/17/2024. Patient to be n.p.o. midnight . Medicine: On board, medical management. Cleared for surgery. Social work: On board, helping with discharge planning PT/OT: on board Podiatry will continue to follow while the patient is in house. Please reach out to Dr. Shah with any questions or concerns. (2) Pain in left ankle: QUALIFIERS: Chronicity: acute Qualified Code(s): M25.572 - Pain in left ankle and joints of left foot (3) Right fibular fracture: QUALIFIERS: Encounter type: initial encounter Fibula location: d istal Fracture type: closed Fracture morphology: other fracture Qualified Code(s): S82.831A - Other fracture of upper and lower end of right fibula, initial encounter for closed fracture (4) Pain in right ankle: QUALIFIERS: Chronicity: acute Qualified Code(s): M25.571 - Pain in right ankle and joints of right foot
--- NOTE | 2024-04-16 16:03 | CASEMGMT ---
Social Work SW?to room to meet with patient for initial transition planning/care coordination?assessment.?SW?introduced self and role at [facility].? Pt voices understanding and consents to?assessment.? Pt is A/Ox4 and answers all questions appropriately.?? Care providers, pharmacy, and demographics verified. PCP: none Specialists: Dr. Shah, pc analyst Preferred Pharmacy: [facility] Insurance: none. Pt been working with [facility] who has assisted him with applying for medicaid Prescription Benefit:?none Living Will/HPOA:? none LNOK: pt has a two sisters. Leonora Islas, of [facility] and Roseann Trujillosriram of [facility] Living Arrangements: Pt does not have a home. 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 Since ankle fracture, pt has been staying in the [facility]. Inspite of bilateral ankle fractures pt has been independent with self care. Pt cannot get in and out of the Semi. Transportation:?pt does have a car and is able to drive DME: ? crutches and a walking boot HHC/SNF: none previously PLAN: [facility] and application has been submitted to S. Pt is understanding that he will need SNF placement at time of discharge as he will be NWB LLE for 6 weeks and will not be able to care for himself. A list of SNF providers including quality and resource use data and consistent with the patient?s preferred geographic region, medical needs, and insurance network were provided from the [employer] Guide Pt will review list tonight and have SNF choices tomorrow. Surgery is scheduled for tomorrow. BALBIR contacted [facility] and requested Medicaid Pending number SNF placement. SW will continue to follow for SNF placement. MALIK Abdul
[2024-04-17] VITALS (13 sets, daily range): BP systolic 127–178; BP diastolic 75–106; PULSE 62–91; RESP 14–18; TEMP 36.4–37.1; O2SAT 96–100
[2024-04-17] MEDS: oxyCODONE 5 MG Tablet PO ×2 (04:26→16:39)
--- NOTE | 2024-04-17 05:00 | EKG12_ITS ---
Test Reason : PRE-OP Blood Pressure : / mmHG Vent. Rate : 065 BPM Atrial Rate : 065 BPM P-R Int : 168 ms QRS Dur : 078 ms QT Int : 402 ms P-R-T Axes : 042 028 047 degrees QTc Int : 418 ms Normal sinus rhythm Normal ECG When compared with ECG of 15-APR-2024 11:02, MANUAL COMPARISON REQUIRED, DATA IS UNCONFIRMED Confirmed by SEBASTIÁN LANDAVERDE, MORALES ([id number]), features editor KYRA OLIVEIRA ([id number]) on 04/20/2024 10:20:04 AM Referred By: CASEY Confirmed By:JERE LOWERY MD
[2024-04-17 06:11] LABS: Absolute Lymphocyte Count 1.71 X10^3/uL (0.83-4.51); Absolute Neutrophil Count 3.9 X10^3/uL (2.0-7.7); Basophil# 0.04 X10^3/uL; Basophil% 0.6 % (0-1); Eosinophil# 0.31 X10^3/uL; Eosinophils% 4.7 % (0-5); Hematocrit 38.1 % (40-54); Hemoglobin 12.3 g/dL (13.0-16.5); Lymphocyte # 1.71 X10^3/ul (0.83-4.51); Lymphocyte % 25.7 % (19-41); Mean Corp Hgb Conc 32.3 g/dL (32-36); Mean Corpuscular Hgb 33.5 pg (27.0-32.0); Mean Corpuscular Volume 103.8 fL (80-94); Mean Platelet Vol. 8.4 fl (6.2-12.0); Monocyte# 0.71 X10^3/uL; Monocyte% 10.7 % (0-10); NRBC Flagged by Analyzer 0 % (0-5); Neutrophil # 3.86 X10^3/uL (2.7-7.7); Platelet Count 316 K/mm3 (150-450); RBC Distribution Width CV 12.1 % (11.6-14.6); RBC Distribution Width SD 46.4 fl (35.1-43.9); Red Blood Count 3.67 M/mm3 (4.6-6.2); White Blood Count 6.7 K/mm3 (4.4-11.0)
[2024-04-17 06:45] LABS: Anion Gap 5 (5-15); BUN 19 mg/dL (7-18); BUN/Creat Ratio 24.7 RATIO (10-20); Calcium,Total 9.3 mg/dL (8.5-10.1); Chloride 106 mmol/L (98-107); Creatinine, Serum 0.77 mg/dL (0.70-1.30); EST Glomerular Filtration Rate 111 mL/min (>60); Est Glom Filt Rate - Afr Amer 134 mL/min (>60); Estimated Creatinine Clearance 104.57 ml/min; Glucose 92 mg/dL (74-106); Sodium Level 138 mmol/L (136-145)
[2024-04-17] MEDS: Acetaminophen 500 MG Tablet 1000 MG PO ×2 (06:51→22:00)
--- NOTE | 2024-04-17 07:15 | OP.PCM_ITS ---
Problems Associated Problem List Diagnoses (1) Closed trimalleolar fracture of left ankle: (2) Pain in right ankle: Report of Operation Date of Procedure: 04/17/24 Pre-Operative Diagnosis: 1. Closed trimalleolar ankle fracture, left lower extremity. 2. Pain, left ankle Post-Operative Diagnosis: Same as preoperative diagnosis Surgery/Procedure Performed:: 1. Open reduction internal fixation of trimalleolar ankle fracture, left lower extremity 2. Syndesmotic repair, left lower extremity 3. Stress views, left lower extremity 4. Application of posterior splint, left lower extremity Description of Surgical Findings:: 1. Anatomical reduction of the distal fibular and tibial fracture. 2. Anatomic reduction of the tib-fib overlap Surgeon: Gavin Shah instrument repair specialist: Monster Willoughby Type of Anesthesia: Block,Regional, General and Local Anesthesiologist: Kit Wolf Special Medications: Per anesthesia Specimen's removed: None Drains: None Fluids Replaced: Per anesthesia Description of Procedure: Indications For Operation: Mr. Schumacher is a 59-year-old male who was admitted to [facility] for left lower extremity trimalleolar ankle fracture closed. Patient was initially seen a couple weeks ago at the emergency department where he had closed reduction and application of a posterior splint secondary to tripping over a parking curb after having a few alcoholic drinks. Since then the patient has been following with me in private office for continued changes in his AO splint, as well as observation of his soft tissue envelope to left lower extremity. Due to decrease in edema and swelling to left lower extremity. The patient was admitted to the hospital secondary to continued left lower extremity pain, medical clearance as well as to perform open reduction internal fixation of the trimalleolar ankle fracture to left lower extremity. The nature of the problem, anticipated procedures, postop recovery/convalences and risk/complications include but not limited to infection, wound healing complications, digital amputation, hypertrophic scarring, numbness, tingling, chronic pain, CRPS, over and under correction, recurrence of deformity, DVT and or PE and the need for further surgery have been discussed in great detail with the patient. All questions have been answered to the patient's satisfaction. There are no guarantees given as to the outcome of the procedure. Description of Procedure: Under mild sedation, the patient was brought into the operating room and placed on the operating table in supine position. Once the patient was under general anesthesia with laryngeal mask airway, the left lower extremity was blocked using approximately 10 cc 0.5% Marcaine plain for left lower extremity saphenous nerve. Anesthesia will be forming a popliteal block, please see their procedure note for further detail. Next, a well-padded thigh tourniquet was applied to the left lower extremity. Next, the left lower extremity was prepped and draped in normal aseptic manner. Next, a timeout was then undertaken verifying the correct patient, extremity, visibility of preoperative markings, availability of the equipment. Next, attention was directed to the left lower extremity. Using a 6 inch Esmarch, left lower extremity was exsanguinated and elevated to 60 degrees for 1 minute. 1. Open reduction internal fixation of trimalleolar ankle fracture, left lower extremity Next, attention was directed to the left lower extremity. Using a smooth K wire the ankle joint as well as the syndesmosis was marked out. Lateral view was taken and the fibula was marked out. Next, using a #15 blade a full-thickness incision down to bone was carried over the lateral malleolus. Continued sharp dissection was carried down and around the fibula. The fracture site was identified and freed with a dental pick. The hematoma and the oblique fracture was evacuated. The fracture fragment was flushed with copious amounts of normal saline. Continued blunt dissection was carried out using a paz elevator distally and proximally to the fracture site. The fracture site was freed but showed to have impingement soft tissue to the anterior aspect of the syndesmosis. Using a rongeur all impinging scar tissue was removed without incident. Using lobster claw and [id number] tenaculums, the capital fragment/distal fibular fragment was reduced back to anatomical position. Position was checked clinically as well as with AP, mortise and lateral ankle views. Next, the Aurora lateral fibular plate was placed in anatomical position. The plate was held in place with BB tacks distally and proximal to the fracture. Position was checked with C arm in AP and lateral views. Next, a 2 7 lag screw was placed perpendicular to the fracture and the fibula using AO technique. Its position was checked in the AP and lateral view with large C arm. Next, the lateral plate was filled with a combination of 3.5 locking and nonlocking screws per the supervisor tank cleaning's recommendation with the rep in the room. Next, using K wires, the medial malleolus was pinned in place percutaneously. A K wire position was checked in AP and lateral views with large C-arm fluoroscopy. Once confirmed, 2 partially-threaded screws were placed through the medial malleolus and adequate anatomical position. There was need to use a shorter threaded screw secondary to the patient's anatomy. But when observing on C-arm fluoroscopy there shows to be good reduction of the medial malleolus and good screw placement. 2. Stress views, left lower extremity Next, stress views were taken with the knee bent. Dorsiflexion external rotatio n showed evidence of gapping of the syndesmosis. At this time clinical judgment was to move forward with syndesmotic repair using a tight rope. The reason not to use a fully threaded screw was due to the location of the plate hole which would be very close to the ankle joint. 3. Syndesmotic repair, left lower extremity Next, using a large smooth K wire, a K wire was placed at 30 degrees from the fibula to the tibia out the skin. The position was checked with C arm and the K wire was in the mid body of the tibia. The SynchFix was thrown using the manufactures recommendation with the rep in the room. The lateral button was placed under the periosteum of the medial tibia. The foot was placed at 90 degrees, and the SynchFix was tightened down to using 2 hemostats to give anatomical reduction and good tib-fib overlap which was checked on AP ankle and mortise view fluoroscopy. 1 single square knot was tied to hold the SynchFix in place. The excess rope was cut with #15 blade. 4. Application of posterior splint, left lower extremity Next, the lateral medial incisions were flushed with copious normal saline. The left lower extremity was wiped clean and patted dry. 1 g of vancomycin powder was applied to the lateral and medial incisions. The medial incision/skin was reapproximated and closed using 3-0 nylon in simple interrupted suture technique. The lateral incision, deep layer was reapproximated closed using 3-0 Monocryl and running locking suture technique, the subcutaneous layer was reapproximated and closed using 3-0 Monocryl and running suture technique, the skin was reapproximated and closed with cassie. Again, the left lower extremities were cleaned and patted dry. All incisions were dressed with Betadi ne soaked Adaptic, dry sterile dressing and a double layer AO splint was donned to left lower extremity in 90 degrees. The patient tolerated the procedure and anesthesia well and apparent satisfactor y condition and was transported to the PACU for further monitoring prior to discharge back to the floor. Vital signs stable and vascular status intact to all digits bilateral. Post Operative Plan: Weightbearing: No weightbearing to left lower extremity. Full weightbearing to right lower extremity. Antibiotics: 2 g Ancef through the IV, 1 g vancomycin powder in all incisions DVT Prophylaxis: Lovenox Sun: None Dressing: Betadine soaked Adaptic, dry sterile dressing, 2 layer Florian AO splint at 90 degrees X-Rays: Post-operative films taken on the operating room. Pain Medication: Oxycodone 5 mg, Tylenol 650 mg, Dilaudid, 0.5 mg Follow-up: Patient will follow-up with Dr. Shah 1 week to 10 days once discharged from the hospital. The patient is planning [facility] be [facility] for [facility]care and rehab. The patient is cleared from a podiatry perspective to be discharged to SNF when pre-CERT is cleared, and cleared by medicine team. Patient understands his postoperative course. Grafts/Implants Used: 1. Aurora ankle fracture set. 2. SynchFix Complications None Admit VTE Documentation VTE Present on Admission: No VTE Mechan Device Prophylaxis: SCD's VTE Pharm Prophylaxis ordered?: Yes
--- NOTE | 2024-04-17 08:22 | PN.HOSP_ITS ---
Subjective Subjective No issues overnight, awaiting surgery today Objective Data Objective Data Vital Signs: Vital Signs Temp Pulse Resp BP Pulse Ox O2 Del Method 98.4 F 62 15 145/79 H 98 Room Air 04/17/24 04:20 04/17/24 04:20 04/17/24 04:20 04/17/24 04:20 04/17/24 04:20 04/17/24 04:20 Oxygen Delivery Method Room Air Weight: 156 lb 8.451 oz Body Mass Index (BMI) 23.1 Intake & Output: Intake and Output for Last 24 Hours 04/16/24 04/17/24 04/18/24 03:59 03:59 03:59 Intake Total 240 / 240 Balance 240 / 240 Lab / Micro Data 04/17/24 05:51 04/17/24 05:51 Labs: Laboratory Results - last 24 hr 04/17/24 05:51: WBC 6.7, RBC 3.67 L, Hgb 12.3 L, Hct 38.1 L, MCV 103.8 H, MCH 33.5 H, MCHC 32.3, RDW Std Deviation 46.4 H, RDW Coeff of Mikey 12.1, Plt Count 316, MPV 8.4, Immature Gran % (Auto) 0.300, Neut % (Auto) 58.0, Lymph % (Auto) 25.7, [place] % (Auto) 10.7 H, Eos % (Auto) 4.7, Baso % (Auto) 0.6, Absolute Neuts (auto) 3.9, Absolute Lymphs (auto) 1.71, Nucleated RBC % 0, Sodium 138, Potassium 4.0, Chloride 106, Carbon Dioxide 27.0, Anion Gap 5, BUN 19 H, Creatinine 0.77, Estim Creat Clear Calc 104.57, Est GFR (MDRD) Af Amer 134, Est GFR (MDRD) Non-Af 111, BUN/Creatinine Ratio 24.7 H, Glucose 92, Calcium 9.3 Radiography Diagnostic Testing: Radiology Impression Echocardiogram 04/15/24 17:17 Interpretation Summary The estimated ejection fraction is 65-70 %. No evidence for diastolic dysfunction. Trivial mitral valve insufficiency. Ordering Physician: José Del Toro Referring Physician: TRE PCP Performed By: Jaylene Rodriguez RCS Physical Exam Narrative General: Alert, Oriented x3, Cooperative, No apparent distress HEENT: Atraumatic, PERRLA, EOMI, Normocephalic Oral: Moist Mucosa Neck: Supple, No JVD Lungs: Diminished, Normal air movement, No rhonchi, No wheeze, No rales Cardiovascular: Regular rate, Regular Rhythm, Normal S1, Normal S2, No murmurs Abdomen: Soft, Non Tender, Non-Distended, No Hepato-splenomegaly Extremities: No edema, Capillary Refill Less than 3 Seconds Skin: No rashes, No breakdown Musculoskeletal: Left lower extremity wrapped Neurological: No focal neurological deficits, Motor Exam 5/5 strength throughout, Sensory exam intact to light touch and pain Psych/Mental Status: Normal Affect, Appropriate Assessment & Plan Assessment/Plan (1) Closed trimalleolar fracture of left ankle: QUALIFIERS: Encounter type: initial encounter Qualified Code(s): S82.852A - Displaced trimalleolar fracture of left lower leg, initial encounter for closed fracture PLAN: Plan 1. Recent left ankle fracture ? Podiatry consulted. Patient suffered a closed trimalleolar left ankle fracture on 03/22. Planning for surgical fixation on 04/17. Preoperative evaluation as noted below. Treat with scheduled Tylenol and oxycodone 5 mg every 6 hours as needed for pain control. Lovenox for DVT prophylaxis. 04/16/2024: Echo is pending for preoperative evaluation. Plan for operative repair tomorrow afternoon 04/17/2024: Echo is unremarkable, low risk for surgery, plan for repair today. 2. Preoperative evaluation ? NSQIP score: Patient is at average risk of serious, occasion, below average risk of any complication and below average risk of discharge to rehab facility given risk factors of mild systemic disease and tobacco use. ? Labs/imaging: Hemoglobin 12.7 and creatinine 0.81 on admit, baseline unknown. No other significant lab abnormalities. Chest x-ray normal on admit. No need for further labs or imaging prior to procedure. Follow-up CBC and BMP postoperatively. ? Cardiac eval: EKG on admit showed normal sinus rhythm, no ST changes. Did have elevated BP readings concerning for untreated hypertension as noted below. Will obtain echo for further evaluation. ? Medications: Not on any home medications. ? Prior procedural complications: None. ? Recommendation: Pending results of echocardiogram, will be medically optimized for procedure. 04/16/2024: Likely regardless of echo findings, medically stable for surgery 3. Concern for alcohol abuse ? Patient reports only drinking beer a few days per week on this admission. However, fall was secondary to suspected alcohol intoxication and at that time he apparently reported drinking on an almost daily basis. Alcohol level 0 on admit. Placed on CIWA protocol with as needed medications per alcohol withdrawal order set, will monitor closely. 4. Tobacco use ? Reports daily use of chewing tobacco. Denied need for nicotine replacement therapy on admission. 5. Elevated BP readings ? BP 170s over 90s on day of admission. No prior diagnosis of hypertension. Will treat with IV hydralazine as needed for now but if BPs remain elevated, low threshold to start scheduled oral medication. 04/16/2024: Will wait until after surgery to adjust medications for blood pressure if he continues to have elevated readingsAs it appears to be higher than his baseline from a month ago and could be attributed to pain and discomfort 6. Mild macrocytic anemia ? Hemoglobin 12.7, MCV 103 on admit. Baseline unknown. Vitamin B12, folate, and iron studies ordered for further evaluation. Follow-up a.m. CBC. 04/17/2024: Iron studies and folate are normal, vitamin B12 is low normal at 247 DVT: Lovenox Charges/Coding Visit Charges Inpatient E&M: 16295 Subs Hosp L2
--- NOTE | 2024-04-17 10:59 | PRE.ANES_ITS ---
ASA Classification* ASA Classification ASA Classification: 2 Assessment & Plan Anesthesia* Anesthesia Assessment Anesthesia Assessment: Discussed sedation and/or anesthesia options, risks, benefits, and alternatives with patient/parents/legal guardian/POA. Questions invited. The patient/parents/legal guardian/POA seems to understand and agrees to proceed with anesthesia plan. Reviewed the physical assessment, medical history, allergy history and patient home medications list prior to surgery/procedure/anesthetic and documented any changes. Performed airway and anesthesia risk assessments. Anesthesia Type Anesthesia Type: General (see written pre anesthesia record for full assessment) Anesthesia Focused Assessment* Temperature: 98.7 F Pulse Rate: 65 Blood Pressure: 146/88 Respiratory Rate: 18 Pulse Ox: 99 Airway Assessment Mouth opens: >3 cm Mallampati Score: II Focused Labs Anesthesia Preop lab: CBC WBC 6.7 K/mm3 (4.4-11.0) 04/17/24 05:51 RBC 3.67 M/mm3 (4.6-6.2) L 04/17/24 05:51 Hgb 12.3 g/dL (13.0-16.5) L 04/17/24 05:51 Hct 38.1 % (40-54) L 04/17/24 05:51 Plt Count 316 K/mm3 (150-450) 04/17/24 05:51 CHEMISTRY Potassium 4.0 mmol/L (3.5-5.1) 04/17/24 05:51 Sodium 138 mmol/L (136-145) 04/17/24 05:51 BUN 19 mg/dL (7-18) H 04/17/24 05:51 Creatinine 0.77 mg/dL (0.70-1.30) 04/17/24 05:51 Glucose 92 mg/dL (74-106) 04/17/24 05:51 COAG Pre-Assessment Diagnosis/Proposed Procedure Planned Operative Procedure(s): orif ankle Anesthesia History 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 When Was Last Pacemaker Check QUESTION #4 FULL TEXT: You/Your Family Experience fever (hyperthermia) with Anesthesia Last Oral Intake Last Oral intake: Last Oral Intake NPO since 00:00 04/16/24 23:23 Meds taken in AM with sips of water? Meds patient instructed to take am of surgery PONV PONV - medical office secretary: PONV - medical office secretary Female HX of Motion Sickness HX of N/V After Surgery Non-Smoker Duration of Surgery greater than 60 minutes Number of Risk Factors PONV Score Height & Weight Height & Weight: Anesthesia: Height & Weight Height 5 ft 9 in 04/16/24 23:23 Weight: 71 kg 04/16/24 23:23 Body Mass Index (BMI) 23.1 04/16/24 23:23 Respiratory Assessment Respiratory Assessment - medical office secretary: Respiratory Tract Infection Hx - medical office secretary Hx Respiratory Tract Infection No 04/16/24 23:19 STOP Sleep Apnea STOP Sleep Apnea - medical office secretary: STOP Sleep Apnea - medical office secretary Hx Hypertension No 04/17/24 09:04 Hx Sleep Apnea No 04/15/24 13:34 CPAP BIPAP Do you snore loudly (louder No 04/15/24 13:34 than talking or can be heard Do you often feel tired/ No 04/15/24 13:34 fatigued/ sleepy during daytime? Has anyone observed you stop No 04/15/24 13:34 breathing during sleep? STOP Results Negative 04/15/24 13:34 QUESTION #5 FULL TEXT : Do you snore loudly (louder than talking or can be heard through closed doors)? 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 Specify any problems Hx of Preganancy in last 3 N/A 04/15/24 13:34 Months Nurse Filling Out Transfusion [id number] 04/15/24 13:34 & Questions: Date: 04/15/24 04/15/24 13:34 Time: 13:38 04/15/24 13:34 Patient unable to answer at this time (ie. confused, unrespo /Reproduction History /Reproductive History - medical office secretary: /Reproductive Hx- medical office secretary Hx Now Gestational Age (in weeks): EDC: Hx Hx Para Hx Section SAB Active Medications Active Medications: Current Medications Generic Name Dose Route Start Last Admin Trade Name Freq PRN Reason Stop Dose Admin Acetaminophen 1,000 mg 04/15/24 14:00 04/17/24 06:51 Acetaminophen 500 Mg Tablet PO 1,000 mg Q8 CLARA Administration Dicyclomine HCl 20 mg 04/15/24 13:32 Dicyclomine 10 Mg Capsule PO Q6H PRN PRN abdominal discomfort Enoxaparin Sodium 40 mg 04/16/24 10:00 04/17/24 08:27 Enoxaparin 40 Mg/0.4 Ml Syringe SC Not Given DAILY CLARA Folic Acid 1 mg 04/16/24 08:00 04/17/24 08:48 Folic Acid 1 Mg Tablet PO Not Given DAILY@0800 CLARA Gabapentin 300 mg 04/15/24 13:32 Gabapentin 300 Mg Capsule PO Q8H PRN PRN moderate to severe anxiety Hydralazine HCl 10 mg 04/15/24 15:26 04/15/24 18:28 Hydralazine 20 Mg/Ml Vial IV 10 mg Q4H PRN PRN Administration SBP GREATER THAN 170 Protocol Hydroxyzine Pamoate 50 mg 04/15/24 13:32 Hydroxyzine Sonya 25 Mg Capsule PO Q4H PRN PRN mild anxiety Sodium Chloride 250 mls @ 15 mls/hr 04/15/24 13:43 IV .[id number] PRN Additional IVPB Infusion Sodium Chloride 250 mls @ 15 mls/hr 04/15/24 13:43 IV .[id number] PRN Saline Flush Loperamide HCl 2 mg 04/15/24 13:32 Loperamide 2 Mg Capsule PO Q4H PRN PRN Loose Stools Loratadine 10 mg 04/16/24 10:00 04/17/24 08:27 Loratadine 10 Mg Tablet PO Not Given DAILY CLARA Ondansetron HCl 4 mg 04/15/24 13:32 Ondansetron 4 Mg/2 Ml Vial IV Q8H PRN PRN NAUSEA/VOMITING Oxycodone HCl 5 mg 04/15/24 17:13 04/17/24 04:26 Oxycodone 5 Mg Tablet PO 5 mg Q6H PRN PRN Administration Pain Score 6-10 Sodium Chloride 10 - 40 ml 04/15/24 13:43 04/15/24 18:28 0.9% Saline Lock 10 Ml Syringe IV 10 ml UD PRN Administration SALINE FLUSH Thiamine HCl 100 mg 04/16/24 08:00 04/17/24 08:48 Thiamine Hydrochloride 100 Mg Tablet PO Not Given DAILY CLARA Trazodone HCl 100 mg 04/15/24 13:32 Trazodone 100 Mg Tablet PO QHS PRN INSOMNIA PFSH Medical History Left otitis media Hypertension, uncontrolled Encounter for screening for COVID-19 Home Medications ?Medication ?Instructions ?Recorded ?Last Taken ?Type oxycodone-acetaminophen 5 mg-325 1 tab PO Q6H PRN pain 7 days #28 03/30/24 Unknown Rx mg tablet (Percocet) tabs acetaminophen 500 mg tablet 1,000 mg PO Q6H PRN pain 04/15/24 04/15/24 History ibuprofen 800 mg tablet 800 mg PO TID 04/15/24 04/15/24 History multivitamin (Daily Multi-Vitamin 0.5 tab PO DAILY 04/15/24 04/15/24 History tablet) Allergy/AdvReac Type Severity Reaction Status Date / Time No Known Allergies Allergy Verified 03/22/24 03:02 Social History Smoking Status: Current every day smoker tobacco type: smokeless tobacco Review of Systems (Anesthesia) ROS Narrative System reviewed and no additional complaints, except as documented.
--- NOTE | 2024-04-17 11:10 | CASEMGMT ---
Social Work SW met with pt who states he has made SNF preferences. 1. [facility] 2. [facility] 3. [facility] 4. [facility]. Referrals to be made after pt has surgery and therapy and a pending Medicaid # is obtained. MALIK Goff
--- NOTE | 2024-04-17 11:15 | NURSING ---
Pt taken to surgery.
[2024-04-17] MEDS: Lactated Ringers 1,000 ML 15 ML IV (11:29)
[2024-04-17] MEDS: Cefazolin 2 GM in 0.9% Normal Saline (100mL Bag) 100 ML IV (12:17)
--- NOTE | 2024-04-17 12:33 | RAD_ITS ---
INDICATION: FX EXAMINATION/TECHNIQUE: X-RAY - LEFT XR Ankle , intraoperative 3 Views COMPARISON: March 22, 2024 FINDINGS: Fracture fragments demonstrate improved alignment and approximation since the previous study. Status post ORIF at the malleoli . RAD/Ankle 2 Views IMPRESSION: ORIF at the malleoli. Electronically Signed: Jase Rangel DO at 21:35 EDT ,
--- NOTE | 2024-04-17 12:52 | CASEMGMT ---
Discharge Planning Referral sent to [facility]. Vandana Moscoso DC Planning Asst.
[2024-04-17] MEDS: Vancomycin IV 1,000 MG/20 ML Vial 1000 MG OPERA.SITE (14:22)
[2024-04-17] MEDS: Bupivacaine Mpf 0.5% 30 ML VIAL (15:00)
--- NOTE | 2024-04-17 15:14 | PCM.POST.ANE ---
Anesthesia: Postop Eval I Current Vital Signs Temperature: 98.1 F Pulse Rate: 72 Blood Pressure: 175/95 Respiratory Rate: 14 Pulse Ox: 98 Oxygen Delivery Method: Room Air Assessment Airway patent: Yes Spontaneous unlabored respirations: Yes Mental status: Awake and Calm nausea: No Vomiting: No Anesthesia Complication: No Fluid Hydration Crystalloid volume administer (ml): 1,500 Total IV fluid infused: 1,500 Progress Note Anesthesia document: Postop Eval 1 completed: Yes
--- NOTE | 2024-04-17 15:34 | CASEMGMT ---
Social Work Per Marielle Rubalcava, pt has been approved for Medicaid #[id number]. Referral has been sent to [facility]. Pt to be here through the weekend for to arrange placement. Plan: [facility], pending acceptance MALIK Goff
--- NOTE | 2024-04-17 15:52 | POSTOPAN2_ITS ---
Anesthesia Postop Eval I Sum Postop Eval Completion status Anesthesia document: Postop Eval 1 completed: Yes Anesthesia Postop Eval I Summary Anesthesia Postop Eval I Summary: Anesthesia Postop Eval I: Assessment Summary Airway patent Yes 04/17/24 15:15 INSOLE LIP [email or web address] Spontaneous unlabored Yes 04/17/24 15:15 INSOLE LIP [email or web address] respirations Mental status Awake,Calm 04/17/24 15:15 INSOLE LIP [email or web address] nausea No 04/17/24 15:15 INSOLE LIP [email or web address] Vomiting No 04/17/24 15:15 INSOLE LIP [email or web address] Anesthesia Postop Eval I: Fluid Summary Crystalloid volume administer 1,500 04/17/24 15:15 INSOLE LIP [email or web address] (ml) Colloids volume administered ( ml) Blood Product volume administered (ml) Total IV fluid infused 1,500 04/17/24 15:15 INSOLE LIP [email or web address] Anesthesia Postop Eval I: Summary Notes Anesthesia Complication No 04/17/24 15:15 INSOLE LIP [email or web address] Anesthesia Complication Comment: Post-operative progress note Anesthesia: Postop Eval II Evaluation Mental status: Awake and Calm Pain Level: 2 nausea: No Vomiting: No Complications Anesthesia Complication: No
--- NOTE | 2024-04-17 15:52 | PCM.POSTANE2 ---
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 Spontaneous unlabored Yes 04/17/24 15:15 SEAL DELIVERY VEHICLE OFFICER.[email or web address] respirations Mental status Awake,Calm 04/17/24 15:15 SEAL DELIVERY VEHICLE [email or web address].[email or web address] nausea No 04/17/24 15:15 SEAL DELIVERY VEHICLE OFFICER.[email or web address] Vomiting No 04/17/24 15:15 SEAL DELIVERY VEHICLE [email or web address].[email or web address] Anesthesia Postop Eval I: Fluid Summary Crystalloid volume administer 1,500 04/17/24 15:15 SEAL DELIVERY VEHICLE OFFICER.[email or web address] (ml) Colloids volume administered ( ml) Blood Product volume administered (ml) Total IV fluid infused 1,500 04/17/24 15:15 SEAL DELIVERY VEHICLE [email or web address].[email or web address] Anesthesia Postop Eval I: Summary Notes Anesthesia Complication No 04/17/24 15:15 SEAL DELIVERY VEHICLE OFFICER.[email or web address] Anesthesia Complication Comment: Post-operative progress note Anesthesia: Postop Eval II Evaluation Mental status: Awake and Calm Pain Level: 2 nausea: No Vomiting: No Complications Anesthesia Complication: No
[2024-04-18] VITALS (7 sets, daily range): BP systolic 118–168; BP diastolic 67–100; PULSE 70–92; RESP 16–18; TEMP 36.6–37; O2SAT 97–100
[2024-04-18] MEDS: Acetaminophen 500 MG Tablet 1000 MG PO ×3 (05:55→22:19)
[2024-04-18] MEDS: Thiamine Hydrochloride 100 MG Tablet PO (07:53)
[2024-04-18] MEDS: Enoxaparin 40 MG/0.4 ML Syringe SC (07:53)
[2024-04-18] MEDS: Folic Acid 1 MG Tablet PO (07:53)
--- NOTE | 2024-04-18 09:08 | PN.HOSP_ITS ---
Subjective Subjective Doing well, no issues overnight. Dressing intact Objective Data Objective Data Vital Signs: Vital Signs Temp Pulse Resp BP Pulse Ox O2 Del Method 98.2 F 81 16 132/78 H 99 Room Air 04/18/24 05:57 04/18/24 05:57 04/18/24 05:57 04/18/24 05:57 04/18/24 05:57 04/18/24 05:57 Oxygen Delivery Method Room Air Weight: 156 lb 8.451 oz Body Mass Index (BMI) 23.1 Intake & Output: Intake and Output for Last 24 Hours 04/17/24 04/18/24 04/19/24 03:59 03:59 03:59 Intake Total 240 / 240 730 / 730 519.5 / 519.5 Output Total 575 / 575 Balance 240 / 240 155 / 155 519.5 / 519.5 Lab / Micro Data 04/17/24 05:51 04/17/24 05:51 Radiography Diagnostic Testing: Radiology Impression Ankle X-Ray 04/17/24 12:33 IMPRESSION: ORIF at the malleoli. Electronically Signed: Jase Rangel DO at 21:35 EDT Reading Location ID and State: [facility] / [place] Tel [phone], Service support , Physical Exam Narrative General: Alert, Oriented x3, Cooperative, No apparent distress HEENT: Atraumatic, PERRLA, EOMI, Normocephalic Oral: Moist Mucosa Neck: Supple, No JVD Lungs: Diminished, Normal air movement, No rhonchi, No wheeze, No rales Cardiovascular: Regular rate, Regular Rhythm, Normal S1, Normal S2, No murmurs Abdomen: Soft, Non Tender, Non-Distended, No Hepato-splenomegaly Extremities: No edema, Capillary Refill Less than 3 Seconds Skin: No rashes, No breakdown Musculoskeletal: Left lower extremity wrapped, dressing CDI Neurological: No focal neurological deficits, Motor Exam 5/5 strength throughout, Sensory exam intact to light touch and pain Psych/Mental Status: Normal Affect, Appropriate Assessment & Plan Assessment/Plan (1) Closed trimalleolar fracture of left ankle: QUALIFIERS: Encounter type: initial encounter Qualified Code(s): S82.852A - Displaced trimalleolar fracture of left lower leg, initial encounter for closed fracture PLAN: Plan 1. Recent left ankle fracture ? Podiatry consulted. Patient suffered a closed trimalleolar left ankle fracture on 03/22. Planning for surgical fixation on 04/17. Preoperative evaluation as noted below. Treat with scheduled Tylenol and oxycodone 5 mg every 6 hours as needed for pain control. Lovenox for DVT prophylaxis. 04/16/2024: Echo is pending for preoperative evaluation. Plan for operative repair tomorrow afternoon 04/17/2024: Echo is unremarkable, low risk for surgery, plan for repair today. 04/18/2024: PT/OT and consult case management for disposition and discharge planning 2. Concern for alcohol abuse ? Patient reports only drinking beer a few days per week on this admission. However, fall was secondary to suspected alcohol intoxication and at that time he apparently reported drinking on an almost daily basis. Alcohol level 0 on admit. Placed on CIWA protocol with as needed medications per alcohol withdrawal order set, will monitor closely. 3. Tobacco use ? Reports daily use of chewing tobacco. Denied need for nicotine replacement therapy on admission. 4. Elevated BP readings ? BP 170s over 90s on day of admission. No prior diagnosis of hypertension. Will treat with IV hydralazine as needed for now but if BPs remain elevated, low threshold to start scheduled oral medication. 04/16/2024: Will wait until after surgery to adjust medications for blood pressure if he continues to have elevated readingsAs it appears to be higher than his baseline from a month ago and could be attributed to pain and discomfort 6. Mild macrocytic anemia ? Hemoglobin 12.7, MCV 103 on admit. Baseline unknown. Vitamin B12, folate, and iron studies ordered for further evaluation. Follow-up a.m. CBC. 04/17/2024: Iron studies and folate are normal, vitamin B12 is low normal at 247 DVT: Lovenox Charges/Coding Visit Charges Inpatient E&M: 61443 Subs Hosp L2
--- NOTE | 2024-04-18 11:40 | CASEMGMT ---
Social Work Updated clinicals sent to [facility] for evaluation of acceptance for admission to SNF. Will touch base with [facility] on Saturday for placement. MALIK Abdul
[2024-04-18] MEDS: oxyCODONE 5 MG Tablet PO ×2 (12:19→19:48)
--- NOTE | 2024-04-18 13:07 | PCM.PN.SRG ---
Subjective Subjective Mr. Schumacher is a 59-year-old male seen at bedside today status post ORIF left lower extremity ankle fracture. DOS: 04/17/2024, POD #1. Patient is recovering well. He states that his block is wearing off and he rates his pain as 1?2 out of 10 on the pain scale. He has continued to rest ice and elevate left lower extremity as instructed. He is continue to be nonweightbearing. He is waiting pre-CERT approval for SNF placement possibly next week. He does admit to some strikethrough to the heel but was reinforced by nursing staff. No acute events overnight. Denies trauma. Denies constitutional symptoms. No other pedal complaints at this time. Objective Data Objective Data Vital Signs: Vital Signs Temp Pulse Resp BP Pulse Ox O2 Del Method 98.1 F 92 18 168/89 H 99 Room Air 04/18/24 12:15 04/18/24 12:15 04/18/24 12:15 04/18/24 12:15 04/18/24 12:15 04/18/24 12:15 Oxygen Delivery Method Room Air Weight: 71 kg Body Mass Index (BMI) 23.1 Intake & Output: Intake and Output for Last 24 Hours 04/16/24 04/17/24 04/18/24 23:59 23:59 23:59 Intake Total 240 / 240 230 / 730 1019.5 / 1019.5 Output Total 575 / 575 Balance 240 / 240 -345 / 155 1019.5 / 1019.5 Lab / Micro Data 04/17/24 05:51 04/17/24 05:51 Radiography Diagnostic Testing: Radiology Impression Ankle X-Ray 04/17/24 12:33 IMPRESSION: ORIF at the malleoli. Electronically Signed: Jase Rangel DO at 21:35 EDT , Physical Exam Narrative Neuro vas status is unchanged. Evidence of strikethrough to the left heel. Reinforced by nursing staff. Active and passive range of motion is pain-free. Nonpitting edema appreciated to the distal and proximal aspect of the left lower extremity splint. Assessment & Plan Assessment/Plan (1) Closed trimalleolar fracture of left ankle: QUALIFIERS: Encounter type: initial encounter Qualified Code(s): S82.852A - Displaced trimalleolar fracture of left lower leg, initial encounter for closed fracture PLAN: Patient was examined and evaluated. All findings were discussed with the patient. All questions were answered to the patient satisfaction. Patient has recovered well from his left lower extremity ORIF ankle fracture. Popliteal block is wearing off and patient is showing evidence of pain rating it 1?2 out of 10 on the pain scale. Patient is taking only Tylenol at this time. He is continuing to rest ice and elevate the left lower extremity and to be nonweightbearing with crutches. Social work: Discharge planning Medicine: On board, medical management Patient is cleared from a podiatry perspective to discharge to SNF when pre-CERT is approved and cleared by medicine team. Podiatry will continue to follow patient but from a distance. Please reach out to Dr. Shah with any questions or concerns. Thank you for letting me be involved in the patient's care. (2) Pain in right ankle: QUALIFIERS: Chronicity: acute Qualified Code(s): M25.571 - Pain in right ankle and joints of right foot
[2024-04-18] MEDS: HYDROmorphone 0.5 MG/0.5 ML SYRINGE IV ×2 (16:11→22:19)
[2024-04-18] MEDS: 0.9% Saline Lock 10 ML Syringe IV ×3 (16:12→22:15)
[2024-04-18] MEDS: Senna/Docusate Sodium 1 Tablet 2 TABLET PO (22:14)
[2024-04-19] MEDS: oxyCODONE 5 MG Tablet 10 MG PO ×5 (00:28→20:41)
[2024-04-19] MEDS: 0.9% Saline Lock 10 ML Syringe IV ×2 (00:36→10:41)
[2024-04-19] MEDS: traZODone 100 MG Tablet PO (00:36)
[2024-04-19 06:02] LABS: Absolute Lymphocyte Count 2.81 X10^3/uL (0.83-4.51); Absolute Neutrophil Count 4.7 X10^3/uL (2.0-7.7); Basophil# 0.03 X10^3/uL; Basophil% 0.3 % (0-1); Eosinophil# 0.29 X10^3/uL; Eosinophils% 3.4 % (0-5); Hematocrit 35.7 % (40-54); Hemoglobin 11.2 g/dL (13.0-16.5); Lymphocyte # 2.81 X10^3/ul (0.83-4.51); Lymphocyte % 32.6 % (19-41); Mean Corp Hgb Conc 31.4 g/dL (32-36); Mean Corpuscular Hgb 32.9 pg (27.0-32.0); Mean Platelet Vol. 8.8 fl (6.2-12.0); Monocyte# 0.83 X10^3/uL; Monocyte% 9.6 % (0-10); NRBC Flagged by Analyzer 0 % (0-5); Neutrophil # 4.65 X10^3/uL (2.7-7.7); Neutrophil % 53.9 % (47-70); Platelet Count 309 K/mm3 (150-450); RBC Distribution Width CV 12.5 % (11.6-14.6); RBC Distribution Width SD 48.8 fl (35.1-43.9); White Blood Count 8.6 K/mm3 (4.4-11.0)
[2024-04-19] MEDS: Acetaminophen 500 MG Tablet 1000 MG PO ×3 (06:23→20:41)
[2024-04-19 06:24] VITALS: BP 135/72; PULSE 75; RESP 16; TEMP 36.8; O2SAT 100
--- NOTE | 2024-04-19 08:18 | PCM.PN.HOSP ---
Subjective Subjective Doing well, has some increased pain overnight medication adjustments were made Objective Data Objective Data Vital Signs: Vital Signs Temp Pulse Resp BP Pulse Ox O2 Del Method 98.2 F 75 16 135/72 H 100 Room Air 04/19/24 06:24 04/19/24 06:24 04/19/24 06:24 04/19/24 06:24 04/19/24 06:24 04/19/24 06:24 Oxygen Delivery Method Room Air Weight: 156 lb 8.451 oz Body Mass Index (BMI) 23.1 Intake & Output: Intake and Output for Last 24 Hours 04/18/24 04/19/24 04/20/24 03:59 03:59 03:59 Intake Total 730 / 730 719.5 / 719.5 200 / 200 Output Total 575 / 575 Balance 155 / 155 719.5 / 719.5 200 / 200 Lab / Micro Data 04/19/24 05:30 04/17/24 05:51 Labs: Laboratory Results - last 24 hr 04/19/24 05:30: WBC 8.6, RBC 3.40 L, Hgb 11.2 L, Hct 35.7 L, MCV 105.0 H, MCH 32.9 H, MCHC 31.4 L, RDW Std Deviation 48.8 H, RDW Coeff of Mikey 12.5, Plt Count 309, MPV 8.8, Immature Gran % (Auto) 0.200, Neut % (Auto) 53.9, Lymph % (Auto) 32.6, [place] % (Auto) 9.6, Eos % (Auto) 3.4, Baso % (Auto) 0.3, Absolute Neuts (auto) 4.7, Absolute Lymphs (auto) 2.81, Nucleated RBC % 0 Physical Exam Narrative General: Alert, Oriented x3, Cooperative, No apparent distress HEENT: Atraumatic, PERRLA, EOMI, Normocephalic Oral: Moist Mucosa Neck: Supple, No JVD Lungs: Diminished, Normal air movement, No rhonchi, No wheeze, No rales Cardiovascular: Regular rate, Regular Rhythm, Normal S1, Normal S2, No murmurs Abdomen: Soft, Non Tender, Non-Distended, No Hepato-splenomegaly Extremities: No edema, Capillary Refill Less than 3 Seconds Skin: No rashes, No breakdown Musculoskeletal: Left lower extremity wrapped, dressing CDI Neurological: No focal neurological deficits, Motor Exam 5/5 strength throughout, Sensory exam intact to light touch and pain Psych/Mental Status: Normal Affect, Appropriate Assessment & Plan Assessment/Plan (1) Closed trimalleolar fracture of left ankle: QUALIFIERS: Encounter type: initial encounter Qualified Code(s): S82.852A - Displaced trimalleolar fracture of left lower leg, initial encounter for closed fracture PLAN: Plan 1. Recent left ankle fracture status post ORIF on 04/17/2024 ? Podiatry consulted. Patient suffered a closed trimalleolar left ankle fracture on 03/22. Planning for surgical fixation on 04/17. Preoperative evaluation as noted below. Treat with scheduled Tylenol and oxycodone 5 mg every 6 hours as needed for pain control. Lovenox for DVT prophylaxis. 04/16/2024: Echo is pending for preoperative evaluation. Plan for operative repair tomorrow afternoon 04/17/2024: Echo is unremarkable, low risk for surgery, plan for repair today. 04/18/2024: PT/OT and consult case management for disposition and discharge planning 04/19/2024: Continue with physical therapy discharge planning 2. Concern for alcohol abuse ? Patient reports only drinking beer a few days per week on this admission. However, fall was secondary to suspected alcohol intoxication and at that time he apparently reported drinking on an almost daily basis. Alcohol level 0 on admit. Placed on CIWA protocol with as needed medications per alcohol withdrawal order set, will monitor closely. 3. Tobacco use ? Reports daily use of chewing tobacco. Denied need for nicotine replacement therapy on admission. 4. Elevated BP readings ? BP 170s over 90s on day of admission. No prior diagnosis of hypertension. Will treat with IV hydralazine as needed for now but if BPs remain elevated, low threshold to start scheduled oral medication. 04/16/2024: Will wait until after surgery to adjust medications for blood pressure if he continues to have elevated readingsAs it appears to be higher than his baseline from a month ago and could be attributed to pain and discomfort 6. Mild macrocytic anemia ? Hemoglobin 12.7, MCV 103 on admit. Baseline unknown. Vitamin B12, folate, and iron studies ordered for further evaluation. Follow-up a.m. CBC. 04/17/2024: Iron studies and folate are normal, vitamin B12 is low normal at 247 DVT: Lovenox Charges/Coding Visit Charges Inpatient E&M: 26609 Subs Hosp L2
[2024-04-19 08:27] LABS: Anion Gap 5 (5-15); BUN 23 mg/dL (7-18); BUN/Creat Ratio 29.2 RATIO (10-20); Calcium,Total 9.1 mg/dL (8.5-10.1); Chloride 108 mmol/L (98-107); Creatinine, Serum 0.79 mg/dL (0.70-1.30); EST Glomerular Filtration Rate 107 mL/min (>60); Est Glom Filt Rate - Afr Amer 130 mL/min (>60); Estimated Creatinine Clearance 101.92 ml/min; Glucose 89 mg/dL (74-106); Potassium 4.1 mmol/L (3.5-5.1); Sodium Level 140 mmol/L (136-145)
[2024-04-19 09:00] VITALS: BP 120/77; PULSE 79; RESP 18; TEMP 36.7; O2SAT 100
[2024-04-19] MEDS: Folic Acid 1 MG Tablet PO (10:41)
[2024-04-19] MEDS: Enoxaparin 40 MG/0.4 ML Syringe SC (10:41)
[2024-04-19] MEDS: Thiamine Hydrochloride 100 MG Tablet PO (10:41)
[2024-04-19] MEDS: Senna/Docusate Sodium 1 Tablet 2 TABLET PO (10:45)
[2024-04-19 14:40] VITALS: BP 148/85; PULSE 81; RESP 18; TEMP 36.6; O2SAT 99
[2024-04-19 20:30] VITALS: BP 157/97; PULSE 81; RESP 18; TEMP 36.9; O2SAT 99
[2024-04-20 02:30] VITALS: BP 154/91; PULSE 76; RESP 16; TEMP 36.7; O2SAT 100
[2024-04-20] MEDS: Senna/Docusate Sodium 1 Tablet 2 TABLET PO (03:53)
[2024-04-20] MEDS: oxyCODONE 5 MG Tablet 10 MG PO ×5 (03:53→22:03)
[2024-04-20] MEDS: Acetaminophen 500 MG Tablet 1000 MG PO ×3 (06:26→22:02)
[2024-04-20 07:46] VITALS: BP 160/85; PULSE 74; RESP 16; TEMP 37.1; O2SAT 100
[2024-04-20] MEDS: Folic Acid 1 MG Tablet PO (07:51)
[2024-04-20] MEDS: Thiamine Hydrochloride 100 MG Tablet PO (07:52)
[2024-04-20] MEDS: Polyethylene Glycol 3350 17 GM PACKET PO (10:20)
[2024-04-20] MEDS: Enoxaparin 40 MG/0.4 ML Syringe SC (10:20)
--- NOTE | 2024-04-20 11:53 | CASEMGMT ---
Discharge Planning CC declined. SW updated. Vandana Moscoso DC Planning Asst.
--- NOTE | 2024-04-20 12:08 | CASEMGMT ---
Addendum entered by Zayda Blevins 04/20/24 16:18: Social Work- SW called [facility] and left a voicemail to f/u on referral sent via [employer]. MALIK Gannon Addendum entered by Zayda Blevins 04/20/24 15:20: [facility] and [facility] decline referrals. Pt 4th choice is [facility]. BALBIR completed referral. MALIK Gannon Original Note: Social Work- Pt referral was declined by [facility]. Balbir submitted referrals to [facility] and [facility], pt alternate preferences. Pt updated. MALIK Gannon
[2024-04-20 15:03] VITALS: BP 142/89; PULSE 76; RESP 16; TEMP 36.6; O2SAT 100
--- NOTE | 2024-04-20 16:59 | PCM.PN.HOSP ---
Subjective Subjective No issues overnight, pain is controlled. Objective Data Objective Data Vital Signs: Vital Signs Temp Pulse Resp BP Pulse Ox O2 Del Method 97.8 F 76 16 142/89 H 100 Room Air 04/20/24 15:03 04/20/24 15:03 04/20/24 15:03 04/20/24 15:03 04/20/24 15:03 04/20/24 15:25 Oxygen Delivery Method Room Air Weight: 156 lb 8.451 oz Body Mass Index (BMI) 23.1 Intake & Output: Intake and Output for Last 24 Hours 04/19/24 04/20/24 04/21/24 03:59 03:59 03:59 Intake Total 719.5 / 719.5 450 / 450 1200 / 1200 Balance 719.5 / 719.5 450 / 450 1200 / 1200 Lab / Micro Data 04/19/24 05:30 04/19/24 05:30 Physical Exam Narrative General: Alert, Oriented x3, Cooperative, No apparent distress HEENT: Atraumatic, PERRLA, EOMI, Normocephalic Oral: Moist Mucosa Neck: Supple, No JVD Lungs: Diminished, Normal air movement, No rhonchi, No wheeze, No rales Cardiovascular: Regular rate, Regular Rhythm, Normal S1, Normal S2, No murmurs Abdomen: Soft, Non Tender, Non-Distended, No Hepato-splenomegaly Extremities: No edema, Capillary Refill Less than 3 Seconds Skin: No rashes, No breakdown Musculoskeletal: Left lower extremity wrapped, dressing CDI Neurological: No focal neurological deficits, Motor Exam 5/5 strength throughout, Sensory exam intact to light touch and pain Psych/Mental Status: Normal Affect, Appropriate Assessment & Plan Assessment/Plan (1) Closed trimalleolar fracture of left ankle: QUALIFIERS: Encounter type: initial encounter Qualified Code(s): S82.852A - Displaced trimalleolar fracture of left lower leg, initial encounter for closed fracture PLAN: Plan 1. Recent left ankle fracture status post ORIF on 04/17/2024 ? Podiatry consulted. Patient suffered a closed trimalleolar left ankle fracture on 03/22. Planning for surgical fixation on 04/17. Preoperative evaluation as noted below. Treat with scheduled Tylenol and oxycodone 5 mg every 6 hours as needed for pain control. Lovenox for DVT prophylaxis. 04/16/2024: Echo is pending for preoperative evaluation. Plan for operative repair tomorrow afternoon 04/17/2024: Echo is unremarkable, low risk for surgery, plan for repair today. 04/18/2024: PT/OT and consult case management for disposition and discharge planning 04/19/2024: Continue with physical therapy discharge planning 04/20/2024: Doing well, awaiting insurance approval for SNF placement 2. Concern for alcohol abuse ? Patient reports only drinking beer a few days per week on this admission. However, fall was secondary to suspected alcohol intoxication and at that time he apparently reported drinking on an almost daily basis. Alcohol level 0 on admit. Placed on CIWA protocol with as needed medications per alcohol withdrawal order set, will monitor closely. 04/20/2024: No complications from drinking since admission. 3. Tobacco use ? Reports daily use of chewing tobacco. Denied need for nicotine replacement therapy on admission. 4. Elevated BP readings ? BP 170s over 90s on day of admission. No prior diagnosis of hypertension. Will treat with IV hydralazine as needed for now but if BPs remain elevated, low threshold to start scheduled oral medication. 04/16/2024: Will wait until after surgery to adjust medications for blood pressure if he continues to have elevated readingsAs it appears to be higher than his baseline from a month ago and could be attributed to pain and discomfort 6. Mild macrocytic anemia ? Hemoglobin 12.7, MCV 103 on admit. Baseline unknown. Vitamin B12, folate, and iron studies ordered for further evaluation. Follow-up a.m. CBC. 04/17/2024: Iron studies and folate are normal, vitamin B12 is low normal at 247 DVT: Lovenox Charges/Coding Visit Charges Inpatient E&M: 08602 Subs Hosp L1
[2024-04-20 21:41] VITALS: BP 149/87; PULSE 83; RESP 15; TEMP 36.7; O2SAT 96
[2024-04-21 03:50] VITALS: BP 133/79; PULSE 68; RESP 15; TEMP 36.8; O2SAT 97
[2024-04-21] MEDS: oxyCODONE 5 MG Tablet 10 MG PO ×4 (03:55→21:09)
[2024-04-21] MEDS: Acetaminophen 500 MG Tablet 1000 MG PO ×3 (06:12→21:10)
[2024-04-21 07:04] LABS: Absolute Lymphocyte Count 1.66 X10^3/uL (0.83-4.51); Absolute Neutrophil Count 2.5 X10^3/uL (2.0-7.7); Basophil# 0.03 X10^3/uL; Basophil% 0.6 % (0-1); Eosinophil# 0.26 X10^3/uL; Eosinophils% 5.1 % (0-5); Hematocrit 35.6 % (40-54); Hemoglobin 11.1 g/dL (13.0-16.5); Lymphocyte # 1.66 X10^3/ul (0.83-4.51); Lymphocyte % 32.9 % (19-41); Mean Corp Hgb Conc 31.2 g/dL (32-36); Mean Corpuscular Hgb 32.7 pg (27.0-32.0); Mean Platelet Vol. 8.7 fl (6.2-12.0); Monocyte# 0.55 X10^3/uL; Monocyte% 10.9 % (0-10); NRBC Flagged by Analyzer 0 % (0-5); Neutrophil # 2.53 X10^3/uL (2.7-7.7); Neutrophil % 50.1 % (47-70); Platelet Count 323 K/mm3 (150-450); RBC Distribution Width CV 12.3 % (11.6-14.6); RBC Distribution Width SD 47.9 fl (35.1-43.9); Red Blood Count 3.39 M/mm3 (4.6-6.2); White Blood Count 5.1 K/mm3 (4.4-11.0)
[2024-04-21 07:24] LABS: Anion Gap 3 (5-15); BUN 30 mg/dL (7-18); BUN/Creat Ratio 39.7 RATIO (10-20); Calcium,Total 9.9 mg/dL (8.5-10.1); Chloride 102 mmol/L (98-107); Creatinine, Serum 0.76 mg/dL (0.70-1.30); EST Glomerular Filtration Rate 113 mL/min (>60); Est Glom Filt Rate - Afr Amer 137 mL/min (>60); Estimated Creatinine Clearance 105.95 ml/min; Glucose 91 mg/dL (74-106); Sodium Level 137 mmol/L (136-145)
--- NOTE | 2024-04-21 08:50 | CASEMGMT ---
Social Work- SW called Jen at [facility] to re-visit referral. Jen will review and call SW with final determination. MALIK Gannon
[2024-04-21 10:00] VITALS: BP 153/93; PULSE 80; RESP 18; TEMP 36.6; O2SAT 98
[2024-04-21] MEDS: Thiamine Hydrochloride 100 MG Tablet PO (10:15)
[2024-04-21] MEDS: Folic Acid 1 MG Tablet PO (10:15)
[2024-04-21] MEDS: Polyethylene Glycol 3350 17 GM PACKET PO ×2 (10:15→21:11)
[2024-04-21] MEDS: Enoxaparin 40 MG/0.4 ML Syringe SC (10:15)
--- NOTE | 2024-04-21 10:25 | CASEMGMT ---
Discharge Planning Note sent to CC via [facility] and left for admission to check on the status of referral. Vandana Moscoso DC Planning Asst.
--- NOTE | 2024-04-21 10:37 | PCM.PN.HOSP ---
Subjective Subjective Doing well, no issues overnight. Pain is controlled Objective Data Objective Data Vital Signs: Vital Signs Temp Pulse Resp BP Pulse Ox O2 Del Method 98.3 F 68 15 133/79 H 97 Room Air 04/21/24 03:50 04/21/24 03:50 04/21/24 03:50 04/21/24 03:50 04/21/24 03:50 04/21/24 05:39 Oxygen Delivery Method Room Air Weight: 156 lb 8.451 oz Body Mass Index (BMI) 23.1 Intake & Output: Intake and Output for Last 24 Hours 04/20/24 04/21/24 04/22/24 03:59 03:59 03:59 Intake Total 450 / 450 2400 / 2400 Output Total 300 / 300 Balance 450 / 450 2100 / 2100 Lab / Micro Data 04/21/24 06:25 04/21/24 06:25 Labs: Laboratory Results - last 24 hr 04/21/24 06:25: WBC 5.1, RBC 3.39 L, Hgb 11.1 L, Hct 35.6 L, MCV 105.0 H, MCH 32.7 H, MCHC 31.2 L, RDW Std Deviation 47.9 H, RDW Coeff of Mikey 12.3, Plt Count 323, MPV 8.7, Immature Gran % (Auto) 0.400, Neut % (Auto) 50.1, Lymph % (Auto) 32.9, [place] % (Auto) 10.9 H, Eos % (Auto) 5.1 H, Baso % (Auto) 0.6, Absolute Neuts (auto) 2.5, Absolute Lymphs (auto) 1.66, Nucleated RBC % 0, Sodium 137, Potassium 4.0, Chloride 102, Carbon Dioxide 32.0, Anion Gap 3 L, BUN 30 H, Creatinine 0.76, Estim Creat Clear Calc 105.95, Est GFR (MDRD) Af Amer 137, Est GFR (MDRD) Non-Af 113, BUN/Creatinine Ratio 39.7 H, Glucose 91, Calcium 9.9 Physical Exam Narrative General: Alert, Oriented x3, Cooperative, No apparent distress HEENT: Atraumatic, PERRLA, EOMI, Normocephalic Oral: Moist Mucosa Neck: Supple, No JVD Lungs: Diminished, Normal air movement, No rhonchi, No wheeze, No rales Cardiovascular: Regular rate, Regular Rhythm, Normal S1, Normal S2, No murmurs Abdomen: Soft, Non Tender, Non-Distended, No Hepato-splenomegaly Extremities: No edema, Capillary Refill Less than 3 Seconds Skin: No rashes, No breakdown Musculoskeletal: Left lower extremity wrapped, dressing CDI Neurological: No focal neurological deficits, Motor Exam 5/5 strength throughout, Sensory exam intact to light touch and pain Psych/Mental Status: Normal Affect, Appropriate Assessment & Plan Assessment/Plan (1) Closed trimalleolar fracture of left ankle: QUALIFIERS: Encounter type: initial encounter Qualified Code(s): S82.852A - Displaced trimalleolar fracture of left lower leg, initial encounter for closed fracture PLAN: Plan 1. Recent left ankle fracture status post ORIF on 04/17/2024 ? He had a closed trimalleolar fracture on 03/22/2024 ? She was admitted under the medical service for preoperative clearance, echo was unremarkable ? Currently awaiting placement for therapy ? Appreciate podiatry's assistance 2. History of alcohol abuse/tobacco abuse ? States that he has not been drinking that much only a few days a week ? Fall was suspected to be due to alcohol intoxication ? She has been on CIWA without any issues ? She chews tobacco does not need nicotine replacement 3. Elevated blood pressure ? These were mostly prior to surgery since then they have been better controlled ? He is currently on as needed medications, however he is only taken hydralazine on 04/15/2024 DVT: Lovenox Charges/Coding Visit Charges Inpatient E&M: 84983 Subs Hosp L2
--- NOTE | 2024-04-21 12:55 | CASEMGMT ---
Addendum entered by Zayda Blevins 04/21/24 15:25: Pt is accepted at [facility] and they are starting precert MALIK Gannon Original Note: Social Work- SW spoke with Jen at [facility] who is going to check on type of medicaid pt has, but has tentatively accepted pt for admit tomorrow. Jen reports that staff will conduct PT/OT eval then place pt on hold until he is partial weight bearing. MALIK Gannon
[2024-04-21 15:18] VITALS: BP 155/83; PULSE 90; RESP 18; TEMP 36.8; O2SAT 99
--- NOTE | 2024-04-21 15:25 | CASEMGMT ---
Social Work- SW met with pt to discuss referrals. Pt is willing to go anywhere. Pt reports that he does not have family or friends to stay with. Pt reports that he has an aunt in [place] that is a retired nurse, but reports no other family. 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 Pt reports that he has $1000 in account and refuses to spend any money, stating that he needs money for food. SW provided contact number for [place] disability per pt request. SW also provided contact number for [facility] for assistance if pt does not go to a SNF. Pt questioned discharge plans if SNF is not approved. SW provided education on authorization process. Pt reports that he refuses to consider a long term or home because there's no nurses there...who will get my medication and take care of me? Pt reports that he can stay at the hospital; SW provided education on qualifying stays. SW will continue to follow. Plan: [facility]; pending precert MALIK Gannon
--- NOTE | 2024-04-21 15:27 | CASEMGMT ---
Discharge Planning [facility] reconsidered referral and have accepted. Precert will be submitted today. Vandana Moscoso DC Planning Asst.
[2024-04-21 20:59] VITALS: BP 130/73; PULSE 75; RESP 18; TEMP 36.9; O2SAT 98
[2024-04-22 03:57] VITALS: BP 136/94; PULSE 75; RESP 16; TEMP 36.6; O2SAT 100
[2024-04-22] MEDS: oxyCODONE 5 MG Tablet 10 MG PO ×5 (04:08→23:20)
[2024-04-22] MEDS: Acetaminophen 500 MG Tablet 1000 MG PO ×3 (06:21→21:07)
[2024-04-22 07:57] VITALS: BP 132/74; PULSE 73; RESP 18; TEMP 36.7; O2SAT 97
[2024-04-22] MEDS: Enoxaparin 40 MG/0.4 ML Syringe SC (08:03)
[2024-04-22] MEDS: Thiamine Hydrochloride 100 MG Tablet PO (08:03)
[2024-04-22] MEDS: Folic Acid 1 MG Tablet PO (08:03)
--- NOTE | 2024-04-22 08:07 | PN.HOSP_ITS ---
Reason for Visit Reason for Visit: Diagnoses Pain in right ankle and joints of right foot (04/15/24) Pain in left ankle and joints of left foot (04/15/24) Other fracture of upper and lower end of right fibula, initial encounter for closed fracture (04/15/24) Displaced trimalleolar fracture of left lower leg, initial encounter for closed fracture (04/15/24) Subjective Subjective Complains of pain on the dorsum of his right foot. It had been present since the inital fall. Objective Data Objective Data Vital Signs: Vital Signs Temp Pulse Resp BP Pulse Ox O2 Del Method 36.7 C 73 18 132/74 H 97 Room Air 04/22/24 07:57 04/22/24 07:57 04/22/24 07:57 04/22/24 07:57 04/22/24 07:57 04/22/24 07:57 Oxygen Delivery Method Room Air Weight: 71 kg Body Mass Index (BMI) 23.1 Intake & Output: Intake and Output for Last 24 Hours 04/20/24 04/21/24 04/22/24 23:59 23:59 23:59 Intake Total 2650 / 2650 750 / 750 700 / 700 Output Total 300 / 300 600 / 600 Balance 2650 / 2650 450 / 450 100 / 100 Lab / Micro Data 04/21/24 06:25 04/21/24 06:25 Physical Exam Const alert and no apparent distress HEENT head/scalp atraumatic Extremity Extremity Narrative: TTP on dorsum of right foot. no right ankle pain. Psych affect normal Assessment & Plan Assessment/Plan (1) Closed trimalleolar fracture of left ankle: QUALIFIERS: Encounter type: initial encounter Qualified Code(s): S82.852A - Displaced trimalleolar fracture of left lower leg, initial encounter for closed fracture PLAN: Plan left ankle fracture * subsequent visit, initially developed on 03/22 * status post ORIF on 04/17/2024 * [facility] * Follow up with Dr. Shah as outpt. History of alcohol abuse/tobacco abuse * stable VTE prophylaxis: enoxaparin.Would continue until activity can be advanced Disposition: to SNF pending insurance authorization. Patient is nonweightbearing to the left ankle. Patient has no home other than a semitruck with a sleeper cab and that would not be feasible to using at this time. Additionally he does not have any family members close by who he could stay with. He lacks financial resources to be able to pay for a hotel indefinitely. Greater than 35 minutes of which greater than 50% of time was discussing with the patient bedside about his situation, reviewing his right ankle pain and discussing disposition possibilities. Also discussing with social work in regards to his disposition. Charges/Coding Visit Charges Inpatient E&M: 40990 Subs Hosp L2
--- NOTE | 2024-04-22 11:57 | CASEMGMT ---
Social Work- SW spoke with Jen NELLY, regarding pt referral multiple times. Jen and team have been working with [facility] for [facility] pt stay. SW faxed over additional documentation and collaborated with physician to complete PASSR per [facility] request. MALIK Gannon
--- NOTE | 2024-04-22 13:01 | PCM.TXEXTCAR ---
Diet Diet Order/Speech Therapy: 04/17/24 15:35 Diet: Regular - General Type of Dietary Supplement:: Eric Wound(s) LEFT LOWER LEG: Wound Type: Surgical Incision Therapies Weight Bearing: Non weight bearing Extremity Affected:: Left Lower Physical Therapy: Eval and Treat Occupational Therapy: Eval and Treat Problem/Diagnosis (1) Closed trimalleolar fracture of left ankle: Status: Acute Code(s): S82.852A - Displaced trimalleolar fracture of left lower leg, initial encounter for closed fracture Plan left ankle fracture subsequent visit, initially developed on 03/22 status post ORIF on 04/17/2024 [facility] Follow up with Dr. Shah as outpt. History of alcohol abuse/tobacco abuse stable VTE prophylaxis: enoxaparin.Would continue until activity can be advanced Disposition: to SNF pending insurance authorization. Patient is nonweightbearing to the left ankle. Patient has no home other than a semitruck with a sleeper cab and that would not be feasible to using at this time. Additionally he does not have any family members close by who he could stay with. He lacks financial resources to be able to pay for a hotel indefinitely. Greater than 35 minutes of which greater than 50% of time was discussing with the patient bedside about his situation, reviewing his right ankle pain and discussing disposition possibilities. Also discussing with social work in regards to his disposition. Allergies/Procedures Done in Hospital Allergies No Known Allergies Allergy (Verified 03/22/24 03:02) Type of Care/Length of Stay Estimated LOS: Convalescent Care Less Than 30 days Type of Care Needed: Skilled Rehab Potential: Good Prognosis: Good Additional Orders/Day of Discharge Day of Discharge: 04/22/24 Discharge Plan Admission Admit Date/Time: 04/15/24 12:00 Primary Reason for Your Visit: Left ankle fracture. Attending Provider: Kit Steiner Primary Care Provider: Care Physician,No Primary Consulting Providers: José Del Toro; Gavin Shah; William Rae Discharge Orders/Prescriptions Prescriptions: New acetaminophen 500 mg Tablet 1,000 mg PO Q8 Qty: 0 0RF folic acid 1 mg Tablet 1 mg PO DAILY@0800 Qty: 0 0RF enoxaparin 40 mg/0.4 mL Syringe 40 mg subcut DAILY Qty: 0 0RF loratadine [Allergy Relief (loratadine)] 10 mg tablet 10 mg PO DAILY Qty: 10 0RF oxycodone 5 mg Tablet 10 mg PO Q4H PRN PRN (Reason: Pain Score 1-5) 3 Days Qty: 20 0RF sennosides-docusate sodium [Stimulant Laxative Plus] 8.6-50 mg Tablet 2 tab PO DAILY PRN PRN (Reason: Constipation) Qty: 0 0RF Continued ibuprofen 800 mg tablet 800 mg PO TID multivitamin [Daily Multi-Vitamin] Tablet 0.5 tab PO DAILY Discontinued oxycodone-acetaminophen [Percocet] 5-325 mg tablet 1 tab PO Q6H PRN (Reason: pain) 7 Days Qty: 28 0RF Patient Comments: PT OUT OF MED. PT STATES I DONT THINK I NEED THESE ANYMORE, MAYBE AFTER SURGERY. acetaminophen 500 mg tablet 1,000 mg PO Q6H PRN (Reason: pain) Referrals / Follow Up: Gavin Shah DPM [Med Staff - Active Staff] - (Please follow-up with Dr. Shah in private office in 10 days to 2 weeks postdischarge.) Care Physician,No Primary [Primary Care Provider] - Disposition Disposition (needs filled in before D/C Order can be placed): Residential Facility (1) Closed trimalleolar fracture of left ankle Qualifiers: Encounter type: initial encounter Qualified Code(s): S82.852A - Displaced trimalleolar fracture of left lower leg, initial encounter for closed fracture
[2024-04-22 14:29] VITALS: BP 134/72; PULSE 85; RESP 18; TEMP 36.7; O2SAT 98
[2024-04-22] MEDS: Polyethylene Glycol 3350 17 GM PACKET PO ×2 (14:48→21:07)
--- NOTE | 2024-04-22 15:59 | NURSING ---
documentation by Sushil WHALEN reviewed
[2024-04-22 18:01] VITALS: BP 143/71; PULSE 87; RESP 16; TEMP 36.9; O2SAT 97
[2024-04-22] MEDS: Senna/Docusate Sodium 1 Tablet 2 TABLET PO (18:32)
[2024-04-22 21:00] VITALS: BP 146/80; PULSE 74; RESP 16; TEMP 36.9; O2SAT 100
[2024-04-22 23:18] VITALS: BP 137/80; PULSE 77; RESP 16; TEMP 36.9; O2SAT 99
[2024-04-23] VITALS (7 sets, daily range): BP systolic 123–189; BP diastolic 73–100; PULSE 70–80; RESP 16–18; TEMP 36.3–37.2; O2SAT 97–98
[2024-04-23] MEDS: Acetaminophen 500 MG Tablet 1000 MG PO ×3 (06:06→22:14)
--- NOTE | 2024-04-23 07:22 | PN.HOSP_ITS ---
Reason for Visit Reason for Visit: Diagnoses Pain in right ankle and joints of right foot (04/15/24) Pain in left ankle and joints of left foot (04/15/24) Other fracture of upper and lower end of right fibula, initial encounter for closed fracture (04/15/24) Displaced trimalleolar fracture of left lower leg, initial encounter for closed fracture (04/15/24) Subjective Subjective still w pain on dorsum of right foot Objective Data Objective Data Vital Signs: Vital Signs Temp Pulse Resp BP Pulse Ox O2 Del Method 36.8 C 80 16 127/80 H 97 Room Air 04/23/24 06:02 04/23/24 06:02 04/23/24 06:02 04/23/24 06:02 04/23/24 06:02 04/23/24 06:02 Oxygen Delivery Method Room Air Weight: 71 kg Body Mass Index (BMI) 23.1 Intake & Output: Intake and Output for Last 24 Hours 04/21/24 04/22/24 04/23/24 23:59 23:59 23:59 Intake Total 750 / 750 1630 / 1630 900 / 900 Output Total 300 / 300 600 / 600 1400 / 1400 Balance 450 / 450 1030 / 1030 -500 / -500 Lab / Micro Data 04/21/24 06:25 04/21/24 06:25 Physical Exam Const alert and no apparent distress Constitutional Narrative: up at side of bed Neuro Sensorium / Orientation: awake and alert Assessment & Plan Assessment/Plan (1) Closed trimalleolar fracture of left ankle: QUALIFIERS: Encounter type: initial encounter Qualified Code(s): S82.852A - Displaced trimalleolar fracture of left lower leg, initial encounter for closed fracture PLAN: Plan left ankle fracture * subsequent visit, initially developed on 03/22 * status post ORIF on 04/17/2024 * [facility] * Follow up with Dr. Shah as outpt. History of alcohol abuse/tobacco abuse * stable VTE prophylaxis: enoxaparin.Would continue until activity can be advanced Disposition: to SNF pending insurance authorization. Patient is nonweightbearing to the left ankle. Patient has no home other than a semitruck with a sleeper cab and that would not be feasible to using at this time. Additionally he does not have any family members close by who he could stay with. He lacks financial resources to be able to pay for a hotel indefinitely. Charges/Coding Visit Charges Inpatient E&M: 70244 Subs Hosp L1
[2024-04-23] MEDS: Dicyclomine 10 MG Capsule 20 MG PO (08:21)
[2024-04-23] MEDS: oxyCODONE 5 MG Tablet 10 MG PO ×3 (08:21→22:14)
[2024-04-23] MEDS: Thiamine Hydrochloride 100 MG Tablet PO (08:22)
[2024-04-23] MEDS: Folic Acid 1 MG Tablet PO (08:22)
[2024-04-23] MEDS: Polyethylene Glycol 3350 17 GM PACKET PO (08:26)
[2024-04-23] MEDS: Enoxaparin 40 MG/0.4 ML Syringe SC (08:26)
[2024-04-23] MEDS: hydrALAZINE 20 MG/ML Vial 10 MG IV (08:34)
[2024-04-23] MEDS: 0.9% Saline Lock 10 ML Syringe IV (08:35)
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
[2024-04-24] MEDS: Acetaminophen 500 MG Tablet 1000 MG PO ×3 (05:17→22:46)
[2024-04-24] MEDS: oxyCODONE 5 MG Tablet 10 MG PO ×3 (05:17→14:31)
[2024-04-24 05:19] VITALS: BP 133/83; PULSE 70; RESP 18; TEMP 36.5; O2SAT 100
[2024-04-24 07:52] VITALS: PULSE 75
--- NOTE | 2024-04-24 07:54 | PCM.PN.HOSP ---
Reason for Visit Reason for Visit: Diagnoses Pain in right ankle and joints of right foot (04/15/24) Pain in left ankle and joints of left foot (04/15/24) Other fracture of upper and lower end of right fibula, initial encounter for closed fracture (04/15/24) Displaced trimalleolar fracture of left lower leg, initial encounter for closed fracture (04/15/24) Subjective Subjective Still with pain in right foot. Says that he had xrays at Dr. Shah' office that showed that he had a fracture in his right foot/ankle. He was supposed to be heel-bearing with a walking boot. He did not wear the walking boot because it was to slippery, complicated by his more severe left ankle fracture. Objective Data Objective Data Vital Signs: Vital Signs Temp Pulse Resp BP Pulse Ox O2 Del Method 36.5 C L 70 18 133/83 H 100 Room Air 04/24/24 05:19 04/24/24 05:19 04/24/24 05:19 04/24/24 05:19 04/24/24 05:19 04/24/24 05:19 Oxygen Delivery Method Room Air Weight: 71 kg Body Mass Index (BMI) 23.1 Intake & Output: Intake and Output for Last 24 Hours 04/22/24 04/23/24 04/24/24 23:59 23:59 23:59 Intake Total 1630 / 1630 2550 / 2550 700 / 700 Output Total 600 / 600 1400 / 1400 1000 / 1000 Balance 1030 / 1030 1150 / 1150 -300 / -300 Lab / Micro Data 04/21/24 06:25 04/21/24 06:25 Physical Exam Const alert and no apparent distress Constitutional Narrative: up in bed HEENT head/scalp atraumatic and moist oral mucous membranes Assessment & Plan Assessment/Plan (1) Closed trimalleolar fracture of left ankle: QUALIFIERS: Encounter type: initial encounter Qualified Code(s): S82.852A - Displaced trimalleolar fracture of left lower leg, initial encounter for closed fracture PLAN: Plan left ankle fracture subsequent visit, initially developed on 03/22 status post ORIF on 04/17/2024 [facility] Follow up with Dr. Shah as outpt. right fibular fracture subsequent visit preliminary shows right fibular fracture (previous imaging not available.). Place back in walking boot. Heel weight-bearing. History of alcohol abuse/tobacco abuse stable VTE prophylaxis: enoxaparin.Would continue until activity can be advanced Disposition: to SNF pending insurance authorization. Patient is nonweightbearing to the left ankle. Patient has no home other than a semitruck with a sleeper cab and that would not be feasible to using at this time. Additionally he does not have any family members close by who he could stay with. He lacks financial resources to be able to pay for a hotel indefinitely. Charges/Coding Visit Charges Inpatient E&M: 21430 Subs Hosp L1
--- NOTE | 2024-04-24 09:42 | RAD_ITS ---
STUDY: X-RAY - RIGHT ANKLE REASON FOR EXAM: Male, 59 years old. History of fracture. Follow-up. TECHNIQUE: 3 view(s) of the ankle. COMPARISON: None. FINDINGS: Oblique minimally displaced fracture of the lateral malleolus originating at the midportion of the talus. Small talar beak. Overlying soft tissue swelling. Generalized soft tissue swelling. Small calcaneal spur. RAD/Ankle min 3 Views IMPRESSION: Oblique fracture of the distal fibula/lateral malleolus as described. Small talar beak. Calcaneal spur. Soft tissue swelling. Electronically Signed: Reynold Alvarado MD at 13:11 EDT ,
[2024-04-24] MEDS: Folic Acid 1 MG Tablet PO (09:51)
[2024-04-24] MEDS: Polyethylene Glycol 3350 17 GM PACKET PO (09:52)
[2024-04-24] MEDS: Loratadine 10 MG Tablet PO (09:52)
[2024-04-24] MEDS: Enoxaparin 40 MG/0.4 ML Syringe SC (09:52)
[2024-04-24] MEDS: Thiamine Hydrochloride 100 MG Tablet PO (09:52)
[2024-04-24] MEDS: Gabapentin 300 MG Capsule PO (09:54)
--- NOTE | 2024-04-24 10:14 | NURSING ---
PT/OT updated that pt ortho boot for rle in room and pt ready for re-eval w/boot on to stand and pivot
[2024-04-24 11:00] VITALS: BP 139/88; PULSE 75; RESP 18; TEMP 36.6; O2SAT 94
--- NOTE | 2024-04-24 11:03 | CASEMGMT ---
Social Work BALBIR received a VM from Jen at [facility] that late yesterday they were able to verify pt's insurance through [facility] and precert was started. Jen also states they do not have an assisted living or room and board situation that pt could be admitted to. BALBIR collaborated with physician, RN, PT and OT. Pt WBS to right lower extremity has changed to NWB and need for boot with SPT only. Pt has been reevaluated by therapy dues to these changes. VM left with Jen and updated on changes to pt weight bearing status and change of functional ability with therapy and BALBIR requested that [facility] notify [facility] of these changes immediately. Updated clinicals to be faxed. BALBIR met with pt to discuss ongoing case and discharge planning. Pt denied calling his sisters last evening as requested. Pt states he texted them and sisters feel SW should find housing for pt and cannot/will not assist pt with housing. Pt states that one sister lives an hour away and one lives 2 hours away and pt does not feel this would be doable to be this far away from following physician anyway. BALBIR spoke with pt regarding change in WBS. SW encouraged pt to use call light when pt needs to get out of bed and reinforced need to wear boot and NWB. Pt frustrated with new orders but able to speak with BALBIR and after discussion, express understanding of changes. At this time, due to changes in WBS and confirmation of correct insurance, BALBIR is hopeful pt will be approved for SNF stay. BALBIR will continue to follow for dc planning. Plan: [facility], pending insurance MALIK Mckenzie
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
--- NOTE | 2024-04-24 11:53 | CASEMGMT ---
Discharge Planning Updates faxed to [facility], Attn: Jen. Vandana Moscoso DC Planning Asst.
--- NOTE | 2024-04-24 13:35 | PCM.PROGNOTE ---
Subjective Subjective Denies constitutional symptoms. Pain controlled today. No other complaints. Objective Data Objective Data Vital Signs: Vital Signs Temp Pulse Resp BP Pulse Ox O2 Del Method 97.9 F 75 18 139/88 H 94 Room Air 04/24/24 11:00 04/24/24 11:00 04/24/24 11:00 04/24/24 11:00 04/24/24 11:00 04/24/24 11:00 Oxygen Delivery Method Room Air Weight: 71 kg Body Mass Index (BMI) 23.1 Intake & Output: Intake and Output for Last 24 Hours 04/22/24 04/23/24 04/24/24 23:59 23:59 23:59 Intake Total 1630 / 1630 2550 / 2550 1050 / 1050 Output Total 600 / 600 1400 / 1400 1000 / 1000 Balance 1030 / 1030 1150 / 1150 50 / 50 Lab / Micro Data 04/21/24 06:25 04/21/24 06:25 Radiography Diagnostic Testing: Radiology Impression Ankle X-Ray 04/24/24 09:42 IMPRESSION: Oblique fracture of the distal fibula/lateral malleolus as described. Small talar beak. Calcaneal spur. Soft tissue swelling. Electronically Signed: Reynold Alvarado MD at 13:11 EDT Reading Location ID and State: [facility] / [place] , Service support , Physical Exam Narrative Intact splint to left lower extremity. Neurovascular status noted to be intact to bilateral lower extremity. Pain to right distal fibula noted. Assessment & Plan Assessment/Plan (1) Pain in right ankle: QUALIFIERS: Chronicity: acute Qualified Code(s): M25.571 - Pain in right ankle and joints of right foot PLAN: Exam performed. Patient has a distal fibular fracture of the right distal fibula which complicates care. Patient's left ankle fracture was displaced and dislocated requiring open reduction internal fixation. The right distal fibular fracture is nondisplaced but requires cam boot immobilization. I recommend minimal ambulation with only heel weightbearing for transfer and cam boot on the right lower extremity. Patient is complete nonweightbearing to left lower extremity. I do not believe patient would be safe to go home and patient does require SNF placement due to this issue. Continue to follow closely. Plan for splint change and left in the coming weeks. (2) Right fibular fracture: QUALIFIERS: Encounter type: initial encounter Fibula location: distal Fracture type: closed Fracture morphology: other fracture Qualified Code(s): S82.831A - Other fracture of upper and lower end of right fibula, initial encounter for closed fracture (3) Closed trimalleolar fracture of left ankle: QUALIFIERS: Encounter type: initial encounter Qualified Code(s): S82.852A - Displaced trimalleolar fracture of left lower leg, initial encounter for closed fracture
[2024-04-24 14:36] VITALS: BP 154/88; PULSE 73; RESP 18; TEMP 36.7; O2SAT 97
[2024-04-24 20:11] VITALS: BP 146/94; PULSE 89; RESP 15; TEMP 36.9; O2SAT 100
[2024-04-24] MEDS: oxyCODONE 5 MG Tablet PO (20:13)
[2024-04-25 05:00] VITALS: BP 147/87; PULSE 71; RESP 15; TEMP 36.3; O2SAT 97
[2024-04-25] MEDS: oxyCODONE 5 MG Tablet PO ×4 (05:34→20:07)
[2024-04-25] MEDS: Acetaminophen 500 MG Tablet 1000 MG PO ×3 (05:35→23:02)
--- NOTE | 2024-04-25 07:20 | PN.HOSP_ITS ---
Reason for Visit Reason for Visit: Diagnoses Pain in right ankle and joints of right foot (04/15/24) Pain in left ankle and joints of left foot (04/15/24) Other fracture of upper and lower end of right fibula, initial encounter for closed fracture (04/15/24) Displaced trimalleolar fracture of left lower leg, initial encounter for closed fracture (04/15/24) Subjective Subjective Says his right ankle/foot feels better in the walking boot. Objective Data Objective Data Vital Signs: Vital Signs Temp Pulse Resp BP Pulse Ox O2 Del Method 36.3 C L 71 15 147/87 H 97 Room Air 04/25/24 05:00 04/25/24 05:00 04/25/24 05:00 04/25/24 05:00 04/25/24 05:00 04/25/24 05:18 Oxygen Delivery Method Room Air Weight: 71 kg Body Mass Index (BMI) 23.1 Intake & Output: Intake and Output for Last 24 Hours 04/23/24 04/24/24 04/25/24 23:59 23:59 23:59 Intake Total 2550 / 2550 1050 / 1050 Output Total 1400 / 1400 1500 / 1500 1000 / 1000 Balance 1150 / 1150 -450 / -450 -1000 / -1000 Lab / Micro Data 04/21/24 06:25 04/21/24 06:25 Radiography Diagnostic Testing: Radiology Impression Ankle X-Ray 04/24/24 09:42 IMPRESSION: Oblique fracture of the distal fibula/lateral malleolus as described. Small talar beak. Calcaneal spur. Soft tissue swelling. Electronically Signed: Reynold Alvarado MD at 13:11 EDT , Physical Exam Const alert and no apparent distress HEENT head/scalp atraumatic and moist oral mucous membranes Extremity Extremity Narrative: walking boot on right LE. LLE casted. Neuro Sensorium / Orientation: awake and alert Psych affect normal Assessment & Plan Assessment/Plan (1) Closed trimalleolar fracture of left ankle: QUALIFIERS: Encounter type: initial encounter Qualified Code(s): S82.852A - Displaced trimalleolar fracture of left lower leg, initial encounter for closed fracture PLAN: Plan left ankle fracture * subsequent visit, initially developed on 03/22 * status post ORIF on 04/17/2024 * NWB * Follow up with Dr. Shah as outpt. right fibular fracture * subsequent visit * preliminary shows right fibular fracture (previous imaging not available.). Place back in walking boot. Heel weight-bearing. History of alcohol abuse/tobacco abuse * stable VTE prophylaxis: enoxaparin.Would continue until activity can be advanced Disposition: to SNF pending insurance authorization. Patient is nonweightbearing to the left ankle. Patient has no home other than a semitruck with a sleeper cab and that would not be feasible to using at this time. Additionally he does not have any family members close by who he could stay with. He lacks financial resources to be able to pay for a hotel indefinitely. Charges/Coding Visit Charges Inpatient E&M: 64378 Subs Hosp L1
[2024-04-25] MEDS: Folic Acid 1 MG Tablet PO (08:31)
[2024-04-25] MEDS: Enoxaparin 40 MG/0.4 ML Syringe SC (08:31)
[2024-04-25] MEDS: Thiamine Hydrochloride 100 MG Tablet PO (08:31)
[2024-04-25 08:37] VITALS: BP 122/86; PULSE 69; RESP 16; TEMP 36.8; O2SAT 98
[2024-04-25] MEDS: Ibuprofen 600 MG Tablet PO (11:52)
[2024-04-25 15:35] VITALS: BP 124/74; PULSE 79; RESP 16; TEMP 36.4; O2SAT 98
[2024-04-25 20:04] VITALS: BP 150/89; PULSE 80; RESP 15; TEMP 37.2; O2SAT 98
[2024-04-26 05:00] VITALS: BP 149/90; PULSE 71; RESP 15; TEMP 36.3; O2SAT 98
[2024-04-26] MEDS: Acetaminophen 500 MG Tablet 1000 MG PO ×2 (05:43→14:28)
[2024-04-26] MEDS: oxyCODONE 5 MG Tablet PO ×5 (05:43→22:26)
--- NOTE | 2024-04-26 07:22 | PN.HOSP_ITS ---
Reason for Visit Reason for Visit: Diagnoses Pain in right ankle and joints of right foot (04/15/24) Pain in left ankle and joints of left foot (04/15/24) Other fracture of upper and lower end of right fibula, initial encounter for closed fracture (04/15/24) Displaced trimalleolar fracture of left lower leg, initial encounter for closed fracture (04/15/24) Subjective Subjective Feeling well. No new complaints. Objective Data Objective Data Vital Signs: Vital Signs Temp Pulse Resp BP Pulse Ox O2 Del Method 36.3 C L 71 15 149/90 H 98 Room Air 04/26/24 05:00 04/26/24 05:00 04/26/24 05:00 04/26/24 05:00 04/26/24 05:00 04/26/24 05:00 Oxygen Delivery Method Room Air Weight: 71 kg Body Mass Index (BMI) 23.1 Intake & Output: Intake and Output for Last 24 Hours 04/24/24 04/25/24 04/26/24 23:59 23:59 23:59 Intake Total 1050 / 1050 840 / 840 Output Total 1500 / 1500 2100 / 2100 Balance -450 / -450 -1260 / -1260 Lab / Micro Data 04/21/24 06:25 04/21/24 06:25 Physical Exam Const alert and no apparent distress HEENT head/scalp atraumatic and moist oral mucous membranes Extremity Extremity Narrative: left foot and ankle casted. walking boot on right. Assessment & Plan Assessment/Plan (1) Closed trimalleolar fracture of left ankle: QUALIFIERS: Encounter type: initial encounter Qualified Code(s): S82.852A - Displaced trimalleolar fracture of left lower leg, initial encounter for closed fracture PLAN: Plan left ankle fracture * subsequent visit, initially developed on 03/22 * status post ORIF on 04/17/2024 * NWB * Follow up with Dr. Shah as outpt. right fibular fracture * subsequent visit * preliminary shows right fibular fracture (previous imaging not available.). Place back in walking boot. Heel weight-bearing. * Follow up with podiatry to advance activity. History of alcohol abuse/tobacco abuse * stable. No evidence of withdrawal. * On Thiamine and folate. Will change to MVI, continue upon discharge. VTE prophylaxis: enoxaparin.Would continue until activity can be advanced Disposition: to SNF pending insurance authorization. Patient is nonweightbearing to the left ankle. Patient has no home other than a semitruck with a sleeper cab and that would not be feasible to using at this time (he does not have a home, nor have nearby family nor friends to stay with). Additionally he does not have any family members close by who he could stay with. He lacks financial resources to be able to pay for a hotel indefinitely. Charges/Coding Visit Charges Inpatient E&M: 47093 Subs Hosp L1
[2024-04-26 08:00] VITALS: PULSE 80; RESP 18; O2SAT 95
[2024-04-26] MEDS: Multivitamins,Therapeutic Tablet 1 TABLET PO (10:17)
[2024-04-26] MEDS: Enoxaparin 40 MG/0.4 ML Syringe SC (10:19)
[2024-04-26 11:00] VITALS: BP 135/80; PULSE 76; RESP 18; TEMP 36.6; O2SAT 96
[2024-04-26] MEDS: Ibuprofen 600 MG Tablet PO (12:40)
[2024-04-26 14:34] VITALS: PULSE 70; RESP 18; O2SAT 95
[2024-04-26 17:00] VITALS: BP 150/80; PULSE 86; RESP 18; TEMP 36.6; O2SAT 98
[2024-04-26 22:03] VITALS: BP 156/78; PULSE 78; RESP 16; TEMP 36.5; O2SAT 97
[2024-04-26] MEDS: 0.9% Saline Lock 10 ML Syringe IV (22:16)
[2024-04-26] MEDS: Acetaminophen 325 MG Tablet 650 MG PO (22:26)
[2024-04-27 04:35] VITALS: BP 123/87; PULSE 70; RESP 16; TEMP 36.5; O2SAT 96
[2024-04-27] MEDS: Acetaminophen 500 MG Tablet 1000 MG PO ×2 (04:36→13:49)
[2024-04-27] MEDS: Loratadine 10 MG Tablet PO (09:05)
[2024-04-27] MEDS: Multivitamins,Therapeutic Tablet 1 TABLET PO (09:05)
[2024-04-27] MEDS: Enoxaparin 40 MG/0.4 ML Syringe SC (09:05)
[2024-04-27] MEDS: oxyCODONE 5 MG Tablet PO ×2 (09:12→14:02)
[2024-04-27 10:00] VITALS: BP 155/89; PULSE 81; RESP 16; TEMP 36.5; O2SAT 99
--- NOTE | 2024-04-27 10:08 | CASEMGMT ---
Discharge Planning [facility] has obtained auth to admit. SW updated. Vandana Moscoso DC Planning Asst.
--- NOTE | 2024-04-27 11:46 | TREXTCAR_ITS ---
Diet Diet Order/Speech Therapy: 04/17/24 15:35 Diet: Regular - General Type of Dietary Supplement:: Eric Diet Comments: Eric with lunch and dinner Routine Orders/Code Status Enema Type: Fleetz Enema Frequency: Daily PRN Suppository Type: Dulcolax 10mg Suppository Frequency: Daily PRN O2 Frequency: PRN Keep PO Greater than or Equal to (%): 90 Wound(s) LEFT LOWER LEG: Wound Type: Surgical Incision Therapies Physical Therapy: Eval and Treat Occupational Therapy: Eval and Treat Problem/Diagnosis (1) Closed trimalleolar fracture of left ankle: Status: Resolved Code(s): S82.852A - Displaced trimalleolar fracture of left lower leg, initial encounter for closed fracture Allergies/Procedures Done in Hospital Allergies No Known Allergies Allergy (Verified 03/22/24 03:02) Type of Care/Length of Stay Estimated LOS: Convalescent Care Less Than 30 days Type of Care Needed: Skilled Rehab Potential: Good Prognosis: Good Additional Orders/Day of Discharge Day of Discharge: 04/22/24 Dietary and Speech Recommendations Dietitian Recommendations/Changes: Continue Regular diet with Eric BID to optimize oral intakes. Discharge Plan Admission Admit Date/Time: 04/15/24 12:00 Primary Reason for Your Visit: Left ankle fracture. Attending Provider: Rossy Melendez Primary Care Provider: Care Physician,No Primary Consulting Providers: José Del Toro; Gavin Shah; William Rae; Kti Steiner Instructions Patient Instructions: Ankle Fracture ORIF Discharge Orders/Prescriptions Prescriptions: New acetaminophen 500 mg Tablet 1,000 mg PO Q8 Qty: 0 0RF folic acid 1 mg Tablet 1 mg PO DAILY@0800 Qty: 0 0RF enoxaparin 40 mg/0.4 mL Syringe 40 mg subcut DAILY Qty: 0 0RF loratadine [Allergy Relief (loratadine)] 10 mg tablet 10 mg PO DAILY Qty: 10 0RF oxycodone 5 mg Tablet 10 mg PO Q4H PRN PRN (Reason: Pain Score 1-5) 3 Days Qty: 20 0RF sennosides-docusate sodium [Stimulant Laxative Plus] 8.6-50 mg Tablet 2 tab PO DAILY PRN PRN (Reason: Constipation) Qty: 0 0RF Continued ibuprofen 800 mg tablet 800 mg PO TID multivitamin [Daily Multi-Vitamin] Tablet 0.5 tab PO DAILY Discontinued oxycodone-acetaminophen [Percocet] 5-325 mg tablet 1 tab PO Q6H PRN (Reason: pain) 7 Days Qty: 28 0RF Patient Comments: PT OUT OF MED. PT STATES I DONT THINK I NEED THESE ANYMORE, MAYBE AFTER SURGERY. acetaminophen 500 mg tablet 1,000 mg PO Q6H PRN (Reason: pain) Referrals / Follow Up: Gavin Shah DPM [Med Staff - Active Staff] - (Please follow-up with Dr. Shah in private office in 10 days to 2 weeks postdischarge.) Care Physician,No Primary [Primary Care Provider] - Disposition Disposition (needs filled in before D/C Order can be placed): Custodial Facility (1) Closed trimalleolar fracture of left ankle Qualifiers: Encounter type: initial encounter Qualified Code(s): S82.852A - Displaced tri malleolar fracture of left lower leg, initial encounter for closed fracture
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
--- NOTE | 2024-04-27 12:32 | CASEMGMT ---
Discharge Planning Discharge orders, signed med list, and transport time sent to [facility] via [facility]. Physicians will transport patient by wheelchair at 2:30p. Nursing, SW, and patient updated. Vandana Moscoso DC Planning Asst.
--- NOTE | 2024-04-27 14:00 | PHA.DC.MR.R ---
Pharmacy [place] Med Reconciliation Pharmacy Service has performed discharge medication reconciliation for this patient. The patient's discharge medication list was reviewed for discrepancies and discrepancies were resolved. Medications at Discharge Home Medications ibuprofen 800 mg tablet 800 mg PO TID 04/15/24 multivitamin (Daily Multi-Vitamin tablet) 0.5 tab PO DAILY 04/15/24 acetaminophen 500 mg tablet 1,000 mg (2 x 500 mg) PO Q8 #0 tabs 04/22/24 enoxaparin 40 mg/0.4 mL subcutaneous syringe 40 mg (0.4 mL) subcut DAILY #0 mL 04/22/24 folic acid 1 mg tablet 1 mg PO DAILY@0800 #0 tabs 04/22/24 loratadine 10 mg tablet (Allergy Relief (loratadine)) 10 mg PO DAILY #10 tabs 04/22/24 oxycodone 5 mg tablet 10 mg (2 x 5 mg) PO Q4H PRN PRN Pain Score 1-5 3 days #20 tabs 04/22/24 sennosides 8.6 mg-docusate sodium 50 mg tablet (Stimulant Laxative Plus) 2 tab PO DAILY PRN PRN Constipation #0 tabs 04/22/24
== END 2024-04-27 15:03 | disposition skilled nursing facility (03) ==
LOC: ED 11:57 → MS3 04-16 07:14
PROVIDERS: Family Medicine; Podiatrist Foot & Ankle Surgery; Admitting Provider Hospitalist; Emergency Provider Emergency Medicine; Visit Provider Student in an Organized Health Care Education/Training Program
PROC: (CPT 27822; principal; 2024-04-17 13:15)
DX: S82.852A Displaced trimalleolar fracture of left lower leg, initial encounter for closed fracture (principal); D53.9 Nutritional anemia, unspecified; I10 Essential (primary) hypertension; F17.220 Nicotine dependence, chewing tobacco, uncomplicated; R53.81 Other malaise; Z79.899 Other long term (current) drug therapy; W10.1XXA Fall (on)(from) sidewalk curb, initial encounter; Y92.59 Other trade areas as the place of occurrence of the external cause
CPT/HCPCS: 27822; 27829; 01480; 64445; 36415; 71045; 73600; 73610; 76000; 80048; 80053; 80307; 82077; 82607; 82728; 82746; 83540; 83550; 84484; 85025; 85027; 93005; 93306; 94668; 96372; 96374; 96375; 96376; 97110; 97116; 97162; 97164; 97165; 97168; 97530; 97535; 99221; 99252; 99284; C1713; J7120; A4216; G0378; G0463; J2405

== ENCOUNTER 2024-07-02 05:54 | Day surgery (SDC) | payer MEDICAID, SELFPAY ==
[2024-07-02] VITALS (10 sets, daily range): BP systolic 129–163; BP diastolic 74–98; PULSE 60–85; RESP 16–18; TEMP 36.1–36.4; O2SAT 93–100; BMI 27.5
--- OUTSIDE RECORDS SUMMARY | 2024-07-02 05:58 | XMS RPT_ITS | CCD ---
Author Organization [place] [facility] Progress note 02-02-2021 Note Date & Type Note Facility 02-02-2021 Note HNO ID: [id number] Author: Blane No Service: ? Author Type: ? Type: Progress Notes Filed: 02/02/2021 12:48 PM Note Text: Care Gap Reviewed: Controlling Blood Pressure Phone call placed to patient. Pt identified by name and : NO Outreach Outcome/Action: Unable to reach patient: Left message If patient deferred or declined to schedule appointment, please indicate the reason(s): Blane No [facility] Clinical Note 02-02-2021 Note Date & Type Note Facility 02-02-2021 Note Patient Outreach (WA Q) CHERRIE BURNS ([id number]) 1965 M Date Time Provider Department 02/02/21 BLANE NO MIQ During your visit today, we recorded the following information about you: Blane No 02/02/2021 12:48 PM Signed Care Gap Reviewed: Controlling Blood Pressure Phone call placed to patient. Pt identified by name and : NO Outreach Outcome/Action: Unable to reach patient: Left message If patient deferred or declined to schedule appointment, please indicate the reason(s): Blane No Allergies As of Date: 02/02/2021 (No Known Allergies) Date Reviewed: 10/22/2019 Reviewed by: Caitlyn Dai Ma - Fully Assessed Reason for Visit: Population Health Navigation Outreach [3910] Cmt: Deferred Care Prescriptions as of 02/02/2021 Sig: LISINOPRIL 5 MG TABLET Take 1 tablet by mouth once d* BENZONATATE 100 MG CAPSULE Take 1-2 capsules by mouth th* PROAIR RESPICLICK 90 MCG/ACTU* Inhale 2 Puffs as instructed * EUGENE-SELTZER ORAL Take by mouth. ALBUTEROL SULFATE HFA 90 MCG/* Inhale 2 Puffs as instructed * Problem List As Of Date 02/02/2021 Noted Resolved Well adult exam [Z00.00] 10/22/2019 Hypertension, essential [I10] 10/22/2019 Letter Text Encounter Status:Closed by BLANE NO on 02/02/21 [facility] Clinical Note 12-20-2020 Note Date & Type Note Facility 12-20-2020 Note Patient Outreach (FA MPWS) CHERRIE BURNS ([id number]) 1965 M Date Time Provider Department 12/20/20 DEANN ROSAS MA During your visit today, we recorded the following information about you: Deann Rosas MA 12/20/2020 10:44 AM Signed Care Gap Reviewed: Controlling Blood Pressure Phone call placed to patient. Pt identified by name and : YES Outreach Outcome/Action: Unable to reach patient: Left message Letter mailed If patient deferred or declined to schedule appointment, please indicate the reason(s): Other Deann Rosas MA Allergies As of Date: 12/20/2020 (No Known Allergies) Date Reviewed: 10/22/2019 Reviewed by: Caitlyn Dai Ma - Fully Assessed Reason for Visit: Appointment [186] Cmt: HTN Prescriptions as of 12/20/2020 Sig: LISINOPRIL 5 MG TABLET Take 1 tablet by mouth once d* BENZONATATE 100 MG CAPSULE Take 1-2 capsules by mouth th* PROAIR RESPICLICK 90 MCG/ACTU* Inhale 2 Puffs as instructed * EUGENE-SELTZER ORAL Take by mouth. ALBUTEROL SULFATE HFA 90 MCG/* Inhale 2 Puffs as instructed * Problem List As Of Date 12/20/2020 Noted Resolved Well adult exam [Z00.00] 10/22/2019 Hypertension, essential [I10] 10/22/2019 Encounter Status:Closed by DEANN ROSAS MA on 12/20/20 [facility] Progress note 12-20-2020 Note Date & Type Note Facility 12-20-2020 Note HNO ID: [id number] Author: Deann Rosas MA Service: ? Author Type: ? Type: Progress Notes Filed: 12/20/2020 10:44 AM Note Text: Care Gap Reviewed: Controlling Blood Pressure Phone call placed to patient. Pt identified by name and : YES Outreach Outcome/Action: Unable to reach patient: Left message Letter mailed If patient deferred or declined to schedule appointment, please indicate the reason(s): Other Deann Rosas MA [facility] Summary Purpose Family History No Family History Records Found Advance Directives No Advanced Directives Records Found Additional Source Comments (unrecognized sect ion and content) No Status Records Found INFORMATION SOURCE (unrecogn ized section and content) DATE CREATED AUTHOR 10/12/2021 [facility] FOR RECORDS PERTAINING TO PATIENTS WHO ARE OR HAVE BEEN ENROLLED IN A CHEMICAL DEPENDENCY/SUBSTANCEABUSE PROGRAM, SOME INFORMATION MAY BE OMITTED. This clinical summary was aggregated from multiple sources. Caution should be exercised in using it in the provision of clinical care. This summary normalizes information from multiple sources, and as a consequence, information in this document may materially change the coding, format and clinical context of patient data. In addition, data may be omitted in some cases. CLINICAL DECISIONS SHOULD BE BASED ON THE PRIMARY CLINICAL RECORDS. [email or web address] [facility]. provides no warranty or guarantee of the accuracy or completeness of information in this document.
[2024-07-02] MEDS: Lactated Ringers 1,000 ML 15 ML IV (06:38)
--- NOTE | 2024-07-02 06:48 | PCM.PRE.AN2 ---
ASA Classification* ASA Classification ASA Classification: 2 Assessment & Plan Anesthesia* Anesthesia Assessment Anesthesia Assessment: Discussed sedation and/or anesthesia options, risks, benefits, and alternatives with patient/parents/legal guardian/POA. Questions invited. The patient/parents/legal guardian/POA seems to understand and agrees to proceed with anesthesia plan. Reviewed the physical assessment, medical history, allergy history and patient home medications list prior to surgery/procedure/anesthetic and documented any changes. Performed airway and anesthesia risk assessments. Anesthesia Type Anesthesia Type: General and Block Anesthesia Focused Assessment* Temperature: 97.6 F Pulse Rate: 85 Blood Pressure: 135/95 Respiratory Rate: 16 Pulse Ox: 100 Airway Assessment Mouth opens: >3 cm Mallampati Score: II Focused Labs Anesthesia Preop lab: CBC WBC 5.1 K/mm3 (4.4-11.0) 04/21/24 06:25 RBC 3.39 M/mm3 (4.6-6.2) L 04/21/24 06:25 Hgb 11.1 g/dL (13.0-16.5) L 04/21/24 06:25 Hct 35.6 % (40-54) L 04/21/24 06:25 Plt Count 323 K/mm3 (150-450) 04/21/24 06:25 CHEMISTRY Potassium 4.0 mmol/L (3.5-5.1) 04/21/24 06:25 Sodium 137 mmol/L (136-145) 04/21/24 06:25 BUN 30 mg/dL (7-18) H 04/21/24 06:25 Creatinine 0.76 mg/dL (0.70-1.30) 04/21/24 06:25 Glucose 91 mg/dL (74-106) 04/21/24 06:25 COAG Pre-Assessment Diagnosis/Proposed Procedure Planned Operative Procedure(s): (L) Open repair of syndesmosis disruption and open treatment of medial malleolus, Hardware removal, [place] of Calcaneal Bone Graft Anesthesia History 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 When Was Last Pacemaker Check QUESTION #4 FULL TEXT: You/Your Family Experience fever (hyperthermia) with Anesthesia Last Oral Intake Last Oral intake: Last Oral Intake NPO since 00:00 07/02/24 06:39 Meds taken in AM with sips of No 07/02/24 06:39 water? Meds patient instructed to take am of surgery PONV PONV - catalyst manufacturing operator: PONV - catalyst manufacturing operator Female No 06/30/24 15:48 HX of Motion Sickness No 06/30/24 15:48 HX of N/V After Surgery No 06/30/24 15:48 Non-Smoker Yes 06/30/24 15:48 Duration of Surgery greater No 06/30/24 15:48 than 60 minutes Number of Risk Factors 1 06/30/24 15:48 PONV Score Low Risk 06/30/24 15:48 Height & Weight Height & Weight: Anesthesia: Height & Weight Height 5 ft 9 in 07/02/24 06:39 Weight: 84.5 kg 07/02/24 06:39 Body Mass Index (BMI) 27.5 07/02/24 06:39 Respiratory Assessment Respiratory Assessment - catalyst manufacturing operator: Respiratory Tract Infection Hx - catalyst manufacturing operator Hx Respiratory Tract Infection No 06/30/24 15:48 STOP Sleep Apnea STOP Sleep Apnea - catalyst manufacturing operator: STOP Sleep Apnea - catalyst manufacturing operator Hx Hypertension No 06/30/24 15:48 Hx Sleep Apnea No 06/30/24 15:48 CPAP BIPAP Do you snore loudly (louder No 06/30/24 15:48 than talking or can be heard Do you often feel tired/ No 06/30/24 15:48 fatigued/ sleepy during daytime? Has anyone observed you stop No 06/30/24 15:48 breathing during sleep? STOP Results Negative 06/30/24 15:48 QUESTION #5 FULL TEXT : Do you snore loudly (louder than talking or can be heard through closed doors)? 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 Specify any problems Hx of Preganancy in last 3 N/A 06/30/24 15:48 Months Nurse Filling Out Transfusion VCHRISTIN 06/30/24 15:48 & Questions: Date: 06/30/24 06/30/24 15:48 Time: 15:49 06/30/24 15:48 Patient unable to answer at this time (ie. confused, unrespo /Reproduction History /Reproductive History - catalyst manufacturing operator: /Reproductive Hx- catalyst manufacturing operator Hx Now Gestational Age (in weeks): EDC: Hx Hx Para Hx Section SAB Active Medications Active Medications: Current Medications Generic Name Dose Route Start Last Admin Trade Name Freq PRN Reason Stop Dose Admin Cefazolin Sodium 2 gm/ N/A 20 mls @ 400 mls/hr 07/02/24 07:30 IV 07/02/24 07:32 PREOP ONE Lactated Ringer's 1,000 mls @ 15 mls/hr 07/02/24 06:15 07/02/24 06:38 IV 07/07/24 19:34 15 mls/hr .Q48H CLARA Administration Protocol PFSH Medical History Wears glasses Anxiety Chewing tobacco dependence in remission History of pain when walking Left otitis media Hypertension, uncontrolled Encounter for screening for COVID-19 Home Medications ?Medication ?Instructions ?Recorded ?Last Taken ?Type ibuprofen 800 mg tablet 800 mg PO TID 04/15/24 04/15/24 History multivitamin (Daily Multi-Vitamin 1 tab PO DAILY 04/15/24 04/15/24 History tablet) folic acid 1 mg tablet 1 mg PO DAILY@0800 #0 tabs 04/22/24 Unknown Rx loratadine 10 mg tablet (Allergy 10 mg PO DAILY #10 tabs 04/22/24 Unknown Rx Relief (loratadine)) sennosides 8.6 mg-docusate sodium 2 tab PO DAILY PRN PRN 04/22/24 Unknown Rx 50 mg tablet (Stimulant Laxative Constipation #0 tabs Plus) acetaminophen 500 mg tablet 1,000 mg PO Q6H PRN PRN pain 07/01/24 Unknown History losartan 50 mg tablet 50 mg PO DAILY 07/01/24 Unknown History oxycodone 5 mg tablet 5 mg PO Q4H PRN PRN Pain Score 1-5 07/01/24 Unknown History Allergy/AdvReac Type Severity Reaction Status Date / Time No Known Allergies Allergy Verified 06/30/24 15:39 Surgical History Hx of surgical procedure History of open reduction and internal fixation (ORIF) procedure Social History Smoking Status: Current every day smoker tobacco type: smokeless tobacco Review of Systems (Anesthesia) ROS Narrative System reviewed and no additional complaints, except as documented.
--- NOTE | 2024-07-02 06:49 | PCM.OPRPT ---
Problems Associated Problem List Diagnoses (1) Subluxation of left ankle joint, initial encounter: (2) Displaced fracture of medial malleolus of left tibia: (3) Pain in left leg: (4) Localized edema: (5) Sprain of deltoid ligament of left ankle, initial encounter: Operative Report (Standard) Operative Information Surgery/Procedure Performed: 1. [place] of calcaneal bone graft, left foot 2. Hardware removal, left ankle 3. Open reduction internal fixation of medial malleolus fracture, left lower extremity 4. Open repair of syndesmotic disruption, left lower extremity Surgeon: Gavin Shah Date of Procedure: 07/02/24 Procedure Start Time: 07:49 Procedure Stop Time: 08:52 Pre-Operative Diagnosis: 1. Displaced fracture medial malleolus, left tibia 2. Subluxation of ankle joint, left lower extremity 3. Pain in leg, left 4. Sprain of the deltoid ligament, left lower extremity 5. Localized edema, left lower extremity Post-Operative Diagnosis: Same as postoperative diagnosis Select all DRAINS/GRAFTS/IMPLANTS that apply: Implanted device Implanted device details: eMagin hardware Type of Anesthesia: Block,Regional and General/Regional Special Medications: Per anesthesia Estimated Blood Loss: 20 mL Fluids Replaced: Per anesthesia Specimen collected: No Description of surgery: Indications For Operation: Mr. Schumacher is a 59-year-old male who was admitted to [facility] for revision of left lower extremity ankle fracture. Patient was seen in office during his postoperative valuation of his initial open reduction total fixation of left lower extremity ankle fracture where he stated that he missed stepped and has noticed swelling and pain to the left lower extremity. X-rays were taken in the office that showed displacement of the medial malleolus and internal button of the syndesmotic rope. Due to the nature of the displacement the medial malleolus and failure of the internal orthopedic hardware and has been deemed necessary at this time to take the patient back to the operating room to perform revisional surgery of the displacement malleolus and repair of the syndesmosis. Patient had formal surgical consultation in the office with all risk and benefits discussed with the patient in great detail. Patient agreed to move forward with elective surgery. Due to displacement nature of the medial malleolus fracture and failure of the orthopedic hardware it had been deemed necessary at this time to take the patient back to the operating room to perform the above procedure revising ankle fracture placed the medial malleolus bone back into anatomical alignment and decrease his constant pain. The nature of the problem, anticipated procedures, postop recovery/convalences and risk/complications include but not limited to infection, wound healing complications, digital amputation, hypertrophic scarring, numbness, tingling, chronic pain, CRPS, over and under correction, recurrence of deformity, DVT and or PE and the need for further surgery have been discussed in great detail with the patient. All questions have been answered to the patient's satisfaction. There are no guarantees given as to the outcome of the procedure. Description of Procedure: Under mild sedation, the patient was brought into the operating room and placed on the operating table in supine position. Once the patient was under general anesthesia with laryngeal mask airway, the left lower extremity was blocked using approximately 10 cc 0.5% Marcaine plain to the saphenous nerve of the left lower extremity. Anesthesia provided a popliteal block in the PACU prior to the case please see anesthesia note for further detail.. Next, a well-padded thigh tourniquet was applied to the left lower extremity. Next, the left lower extremity was prepped and draped in normal aseptic manner. Next, a timeout was then undertaken verifying the correct patient, extremity, visibility of preoperative markings, availability of the equipment. Next, attention was directed to the left lower extremity. Using a 6 inch Esmarch, left lower extremity was exsanguinated and elevated to 60 degrees for 1 minute. Procedure #1: [place] of calcaneal bone graft, left foot (CPT code: 84337) Next, attention was directed to the lateral aspect of the left calcaneus. Using a #15 blade, a full-thickness incision, approximately 1 cm, was made down to bone without incident. Continued blunt dissection was carried out with curved hemostats. Using the Junko Tada 7 mm bone graft harvester, calcaneal bone harvest less than than 5 cc was made, then removed from the calcaneus and passed the back table to be used later in the case, for the open reduction internal fixation of the malleolus portion of the procedure. The incision was flushed with copious dafne of normal saline. The skin was reapproximated and closed using 3-0 nylon in simple interrupted suture technique. Procedure #2: Hardware removal, left ankle (CPT code: 85981) Next, attention was directed to the medial side of the tibia at the level of the displacement malleolus fracture. Longitudinal incision down the equidistant portion of the medial tibia was performed. Continued sharp dissection was carried down to bone. Care was not to violate the insertion of the deltoid ligament. The medial button of the tight rope was identified and removed. There showed evidence of a displaced medial malleolus fracture. The fracture joint was cleaned out and flushed with copious normal saline. The superior and inferior ends of the tibial bone were fenestrated with a smooth K wire. Next, attention was directed to the lateral side of the left lower extremity. A small incision was placed over the location of the tight rope and proximal screw that were both removed and passed the back table. Both incisions were flushed with copious normal saline. Procedure #3: Open reduction internal fixation of medial malleolus fracture, left lower extremity (CPT code: 65986) Next, attention was directed back to the medial side of the tibia at the level of the displaced medial malleolus fracture. Using a large hook plate provided by e[employer]agin with the rep in the room. Open reduction internal fixation using the medial plate was performed per the can machine operator's recommendations. The hook plate was secured using a combination of locking and nonlocking screws. There showed good anatomic reduction to the displaced medial malleolus fracture. Procedure #4: Open repair of syndesmotic disruption, left lower extremity (CPT code: 81168) Next, using a large smooth K wire, a K wire was placed at 30 degrees from the fibula to the tibia out the skin. The position was checked with C arm and the K wire was in the mid body of the tibia. The SynchFix was thrown using the manufactures recommendation with the rep in the room. The lateral button was placed under the periosteum of the medial tibia. The foot was placed at 90 degrees, and the SynchFix was tightened down to using 2 hemostats to give anatomical reduction and good tib-fib overlap which was checked on AP ankle and mortise view fluoroscopy. 1 single square knot was tied to hold the SynchFix in place. The excess rope was cut with #15 blade. Procedure #5: Application of posterior splint, left lower extremity (CPT code: 58458) Next, the lateral and medial incisions were flushed with copious normal saline. The left lower extremity was wiped clean and patted dry. Next, attention was directed to the medial and lateral incision where the deep layer/periosteal layer was reapproximated closed using 3-0 Monocryl and running locking suture technique. The left lower extremity tourniquet was deflated at this time and reperfusion was noted instantly to left lower extremity. All bleeders were cauterized and ligated as necessary. The subcutaneous layer on the medial and lateral incision were reapproximated and closed using 3-0 Monocryl and running suture technique. The skin on both sides was reapproximated closed using cassie. Again, the left lower extremities were cleaned and patted dry. All incisions were dressed with Betadine soaked Adaptic, dry sterile dressing and a double layer AO splint was donned to left lower extremity in 90 degrees. The patient tolerated the procedure and anesthesia well and apparent satisfactory condition and was transported to the PACU for further monitoring prior to discharge back to snf facility. Vital signs stable and vascular status intact to all digits bilateral. Post Operative Plan: Weightbearing: Patient will be nonweightbearing to left lower extremity with assistive crutches. Full weightbearing right lower extremity. Antibiotics: 2 g Ancef through the IV DVT Prophylaxis: 81 mg aspirin Sun: None Dressing: Betadine soaked Adaptic dry sterile dressing double layer Florian AO splint at 90 degrees. X-Rays: Post-operative films taken on the operating room. Pain Medication: Percocet 5/325, Flexeril 10 mg Follow-up: Patient will follow-up with Dr. Shah in private office 1 week to 10 days postoperative. Please call for appointment date and time. Surgical Findings: 1. Mild displaced medial malleoli or ankle fracture with failed orthopedic hardware. 2. After open reduction terminal fixation with hook plate there showed excellent anatomical position of the displaced medial malleolar fracture. Control Board Operator senior project coordinator: Yes Welding Teacher: Mateo Merritt Tasks completed by assistant site manager: Other (SPECIALIST PHYSICIAN assisted in retracting and holding of implanted orthopedic hardware. SPECIALIST PHYSICIAN assisted in closing.) Complications Complications: No Admit VTE Documentation VTE Present on Admission: No VTE Mechan Device Prophylaxis: SCD's VTE Pharm Prophylaxis ordered?: Yes
[2024-07-02] MEDS: Cefazolin 2 GM in Syringe IV (07:30)
--- NOTE | 2024-07-02 07:32 | RAD_ITS ---
PROCEDURE: Hardware removal of the medial malleolus. DATE OF EXAMINATION: July 02, 2024. INDICATION: Male, 59 years old. Hardware removal. FLUOROSCOPY TIME (if supplied): (84.5 seconds) minutes/seconds. 3.47 mGy. Intraoperative imaging provided for operative removal of the medial malleolus and placement of a screw and lateral bracket. RAD/Ankle 2 Views IMPRESSION: Intraoperative fluoroscopic imaging provided for hardware removal and replacement of the medial malleolus. Electronically Signed: Blas Mauricio MD at 14:43 EDT ,
[2024-07-02] MEDS: Bupivacaine Mpf 0.5% 30 ML VIAL (08:37)
--- NOTE | 2024-07-02 09:03 | PCM.POST.ANE ---
Anesthesia: Postop Eval I Current Vital Signs Temperature: 97 F Pulse Rate: 80 Blood Pressure: 143/98 Respiratory Rate: 18 Pulse Ox: 99 Oxygen Delivery Method: Room Air Assessment Airway patent: Yes Spontaneous unlabored respirations: Yes Mental status: Awake and Calm nausea: No Vomiting: No Anesthesia Complication: No Fluid Hydration Crystalloid volume administer (ml): 800 Total IV fluid infused: 800 Progress Note Post-operative progress note: negative motor lle; denies pain Anesthesia document: Postop Eval 1 completed: Yes
--- NOTE | 2024-07-02 11:09 | POSTOPAN2_ITS ---
Anesthesia Postop Eval I Sum Postop Eval Completion status Anesthesia document: Postop Eval 1 completed: Yes Anesthesia Postop Eval I Summary Anesthesia Postop Eval I Summary: Anesthesia Postop Eval I: Assessment Summary Airway patent Yes 07/02/24 09:04 THREAD [email or web address] Spontaneous unlabored Yes 07/02/24 09:04 THREAD [email or web address] respirations Mental status Awake,Calm 07/02/24 09:04 [email or web address] [email or web address] nausea No 07/02/24 09:04 THREAD [email or web address] Vomiting No 07/02/24 09:04 THREAD [email or web address] Anesthesia Postop Eval I: Fluid Summary Crystalloid volume administer 800 07/02/24 09:04 THREAD [email or web address] (ml) Colloids volume administered ( ml) Blood Product volume administered (ml) Total IV fluid infused 800 07/02/24 09:04 THREAD [email or web address] Anesthesia Postop Eval I: Summary Notes Anesthesia Complication No 07/02/24 09:04 THREAD [email or web address] Anesthesia Complication Comment: Post-operative progress note negative motor lle 07/02/24 09:04 THREAD [email or web address] ; denies pain Anesthesia: Postop Eval II Evaluation Mental status: Awake Pain Level: 0 nausea: No Vomiting: No
--- NOTE | 2024-07-02 11:09 | PCM.POSTANE2 ---
Anesthesia Postop Eval I Sum Postop Eval Completion status Anesthesia document: Postop Eval 1 completed: Yes Anesthesia Postop Eval I Summary Anesthesia Postop Eval I Summary: Anesthesia Postop Eval I: Assessment Summary Airway patent Yes 07/02/24 09:04 [email or web address] Spontaneous unlabored Yes 07/02/24 09:04 [email or web address] respirations Mental status Awake,Calm 07/02/24 09:04 [email or web address] nausea No 07/02/24 09:04 [email or web address] Vomiting No 07/02/24 09:04 [email or web address] Anesthesia Postop Eval I: Fluid Summary Crystalloid volume administer 800 07/02/24 09:04 [email or web address] (ml) Colloids volume administered ( ml) Blood Product volume administered (ml) Total IV fluid infused 800 07/02/24 09:04 [email or web address] Anesthesia Postop Eval I: Summary Notes Anesthesia Complication No 07/02/24 09:04 [email or web address] Anesthesia Complication Comment: Post-operative progress note negative motor lle 07/02/24 09:04 [email or web address] ; denies pain Anesthesia: Postop Eval II Evaluation Mental status: Awake Pain Level: 0 nausea: No Vomiting: No
== END 2024-07-02 11:33 | disposition skilled nursing facility (03) ==
LOC: SDC 05:56 → AC 05:57
PROVIDERS: Referring Provider Podiatrist Foot & Ankle Surgery; Visit Provider Podiatrist Foot & Ankle Surgery
PROC: (CPT 27766; principal; 2024-07-02 07:10)
DX: S82.52XA Displaced fracture of medial malleolus of left tibia, initial encounter for closed fracture (principal); R60.0 Localized edema; S93.422A Sprain of deltoid ligament of left ankle, initial encounter; F17.221 Nicotine dependence, chewing tobacco, in remission; S93.02XA Subluxation of left ankle joint, initial encounter; M79.605 Pain in left leg
CPT/HCPCS: 27766; 20680; 27829; 20900; 01480; 64450; 73600; 76000; C1713; J7120; J2405

== ENCOUNTER → 2024-09-01 05:00 | Outpatient (REF) | payer MEDICAID, SELFPAY ==
[2024-09-01 07:37] LABS: Absolute Lymphocyte Count 2.91 X10^3/uL (0.83-4.51); Absolute Neutrophil Count 3.4 X10^3/uL (2.0-7.7); Basophil# 0.03 X10^3/uL; Basophil% 0.4 % (0-1); Eosinophil# 0.28 X10^3/uL; Eosinophils% 3.8 % (0-5); Hematocrit 39.9 % (40-54); Hemoglobin 12.9 g/dL (13.0-16.5); Lymphocyte # 2.91 X10^3/ul (0.83-4.51); Lymphocyte % 39.6 % (19-41); Mean Corp Hgb Conc 32.3 g/dL (32-36); Mean Corpuscular Hgb 30.9 pg (27.0-32.0); Mean Corpuscular Volume 95.5 fL (80-94); Mean Platelet Vol. 8.6 fl (6.2-12.0); Monocyte# 0.73 X10^3/uL; Monocyte% 9.9 % (0-10); NRBC Flagged by Analyzer 0 % (0-5); Neutrophil # 3.37 X10^3/uL (2.7-7.7); Platelet Count 398 K/mm3 (150-450); RBC Distribution Width CV 12.1 % (11.6-14.6); Red Blood Count 4.18 M/mm3 (4.6-6.2); White Blood Count 7.3 K/mm3 (4.4-11.0)
[2024-09-01 07:49] LABS: Anion Gap 4 (5-15); BUN 15 mg/dL (7-18); Calcium,Total 9.4 mg/dL (8.5-10.1); Chloride 104 mmol/L (98-107); Creatinine, Serum 0.79 mg/dL (0.70-1.30); EST Glomerular Filtration Rate 107 mL/min (>60); Est Glom Filt Rate - Afr Amer 130 mL/min (>60); Glucose 101 mg/dL (74-106); Sodium Level 138 mmol/L (136-145)
== END ==
LOC: OLS.WCC 05:00
PROVIDERS: Visit Provider Family Medicine
DX: M62.561 Muscle wasting and atrophy, not elsewhere classified, right lower leg (principal); M62.562 Muscle wasting and atrophy, not elsewhere classified, left lower leg; S82.852D Displaced trimalleolar fracture of left lower leg, subsequent encounter for closed fracture with routine healing
CPT/HCPCS: 36415; 80048; 85025